=== PATIENT | male | born 1970 | race Caucasian/White ===

== ENCOUNTER 2019-07-11 22:19 | Emergency (ER) | payer SELFPAY ==
--- NOTE | ~2019-07-11 | CT_ITS ---
EXAMINATION: CT abdomen pelvis w con DATE: 07/12/2019 00:02 INDICATION: Upper abdominal pain and vomiting TECHNIQUE: Computed tomography (CT) of the abdomen and pelvis was performed with 100 cc Omnipaque 350 intravenous contrast. The dose-length product was 187.45 mGy-cm. Automated exposure control and iter ative reconstruction technique were employed. COMPARISON: None. FINDINGS: The distal esophagus is distended with fluid. There is mild thickening at the gastroesophag eal junction, not well characterized due to motion. Nonobstructive bowel gas pattern. Moderate diffus e bladder wall thickening. Heart size normal. No significant pleural or pericardial effusion. The jacques er, spleen, pancreas, adrenal glands are unremarkable. There are small hypodense lesions of both kidn eys, most likely benign cysts. No free air or free fluid. Nonobstructive bowel gas pattern. Enlarged prostate gland. There is grade 1 spondylolisthesis at L5-S1 secondary to spondylolysis. IMPRESSION: 1. Distended fluid-filled mid and distal esophagus incompletely visualized. Possible mild thickening at the gastroesophageal junction. Consider distal esophageal obstruction/stricture versus reflux. 2: Circumferential bladder wall thickening, suspicious for cystitis. Correlate clinically. Reviewed, dictated and finalized at location A. IMPRESSION: 1. Distended fluid-filled mid and distal esophagus incompletely visualized. Pos sible mild thickening at the gastroesophageal junction. Consider distal esophag eal obstruction/stricture versus reflux. 2: Circumferential bladder wall thickening, suspicious for cystitis. Correlate clinically.
--- NOTE | ~2019-07-11 | XR_ITS ---
XR abdomen/kub 1V 07/11/2019 22:43 INDICATION: Upper abdominal pain and vomiting TECHNIQUE: KUB COMPARISON: No prior studies for comparison. FINDINGS: Bowel gas pattern is normal. There is no evidence of free air, mass, organomegaly, ascites or obstruction. No abnormal calculi are seen. The bones appear intact. IMPRESSION: 1: No acute abdominal abnormality identified. Reviewed, dictated and finalized at location A.
[2019-07-11 22:25] VITALS: BP 185/116; PULSE 120; RESP 18; TEMP 37; O2SAT 99
--- NOTE | 2019-07-11 22:27 | ED.NAVMDI ---
HPI - Nausea/Vomiting/Diarrhea General Chief complaint: Nausea/Vomiting/Diarrhea Stated complaint: DIFF SWALLOWING Time Seen by Provider: 07/11/19 22:27 Source: patient and RN notes reviewed Mode of arrival: ambulatory Limitations: no limitations History of Present Illness HPI Narrative: A 49 y/o male presents to the ED because he has been unable to swallow any food or liquids since 12 AM this morning. He states that he ate some chicken pasta around 12 AM this morning and shortly after he was unable to swallow anything. He reports that he believes that he has a hiatal hernia which occasionally acts up and prevents him from being able to swallow, but that it normally resolves on its own. He notes that every time he has attempted to drink water he has immediately vomitted it up all day. He denies any SOB, ABD pain, diarrhea, or any other medical complaints at this time. MD elicited complaint: other (Unable to swallow) Onset (ago): hour(s) (22.5) Description of vomiting: watery Associated abdominal pain: No Location of pain: none Relieving factors: none Associated symptoms: denies other symptoms Related Data Home Medications Medication Instructions Recorded Confirmed No Home Medications 03/06/19 03/06/19 Allergies Allergy/AdvReac Type Severity Reaction Status Date / Time aspirin Allergy Severe anaphylactic Verified 02/19/18 02:25 reaction. flurbiprofen Allergy Mild Verified 02/19/18 02:25 NSAIDS (Non-Steroidal Allergy Unknown Verified 02/19/18 02:25 Anti-Inflamma Review of Systems Review of Systems: All systems reviewed & are unremarkable except as noted in HPI and below Constitutional: Constitutional: Denies fatigue and Denies fever(s) Eyes: Eyes: Denies blurry vision ENT: Denies nasal congestion, Denies sinus pressure and Reports other (Unable to swallow) Cardiovascular: Cardiovascular: Denies chest pain, Denies rapid heart rate, Denies leg edema and Denies dyspnea Respiratory: Respiratory: Denies hemoptysis and Denies dyspnea Gastrointestinal: Gastrointestinal: Denies abdominal pain, Denies melena, Denies diarrhea and Reports vomiting Musculoskeletal: Musculoskeletal: Denies numbness Neurologic: Denies Abnormal speech present, Denies focal weakness and Denies numbness Endocrine: Endocrine: Denies fatigue [facility] Past Medical History Medical History (Updated 07/12/19 @ 02:13 by Radhika Sanchez MD) Anxiety Asthma Bronchitis Diverticulitis Finger fracture H/O: HTN (hypertension) Hypothyroid Surgical History Surgical History (Updated 07/11/19 @ 22:39 by Darci Ham) History of colostomy with reversal. Social History Social History (Updated 07/11/19 @ 22:30 by Darci Ham) Smoking packs per day: 1 Smoking cigarettes per day: 20.0 Smoking status: Current every day smoker Tobacco type: cigarettes Alcohol intake: current Alcohol use details: Drinks 6-10 beers a day. Substance use: current Substance use type: marijuana Exam Const: General: alert Nutritional Appearance: thin Orientation/consciousness: patient oriented x3 Eyes: Cornea: corneas normal Pupils: Equal, round and reactive pupils present Chest: Chest palpation & inspection: normal inspection of the chest Resp: Effort & Inspection: normal respiratory effort and not tachypneic Auscultation: clear to auscultation bilaterally Cardio: Rate: tachycardic Rhythm: regular rhythm Heart sounds: no murmurs GI: Inspection: non-distended GI Palp: Yes Soft to palpation, Yes Tenderness to palpation present (GI) (epigastric), No Guarding due to palpation present (GI), No Hernia present and No Palpable mass present Skin: General skin exam: normal color Rashes: no rashes Neuro: General: patient oriented x3, moves all extremities and CN's II-XI intact bilaterally Course Reevaluation(s) Reevaluation #1: Patient is now able to drink water. He feels that obstruction has passed. He denies any discomfort any
[2019-07-11] MEDS: SODIUM CHLORIDE 0.9% IV 1,000 ML 999 ML IV CONT (22:40)
[2019-07-11] MEDS: NITROGLYCERIN OINTMENT 1 INCH DOSE TRANSDERM (22:41)
[2019-07-11] MEDS: GLUCAGON FOR INJ 1 MG VIAL IV PUSH (22:41)
[2019-07-11 22:44] LABS: Basophils Percent Auto 0.5 % (0.2-1.2); Eosinophils Absolute Auto 0.1 K/mm3 (0-0.3); Eosinophils Percent Auto 0.8 % (0-4.4); Hemoglobin 16.5 g/dL (14.0-18.0); Immature Granulocyte Absolute 0.02 K/mm3 (0.00-0.031); Immature Granulocyte Percent A 0.3 % (0-0.5); Lymphocytes Absolute Auto 0.98 K/mm3 (0.9-3.2); Mean Corpuscular HGB Conc 34.4 g/dl (32-36); Mean Corpuscular Hemoglobin 32.3 pg (26-34); Mean Corpuscular Volume 93.9 fl (80-100); Mean Platelet Volume 8.6 fl (7.4-10.4); Monocytes Absolute Auto 0.5 K/mm3 (0.1-0.6); Monocytes Percent Auto 6.1 % (2.6-8.5); Neutrophils Percent Auto 79.3 % (45.5-73.1); Platelet Count Result 265 k/mm3 (150-375); Red Blood Count 5.11 M/mm3 (4.6-6.20); Red Cell Distribution Width 12.2 % (11.5-14.5); White Blood Count 7.6 K/mm3 (4.5-10.0)
[2019-07-11 23:25] VITALS: BP 152/94; PULSE 80; RESP 16; O2SAT 100
[2019-07-11 23:25] LABS: Alanine Aminotransferase 19 U/L (4-50); Albumin Level 4.3 g/dL (3.5-5.1); Alkaline Phosphatase 60 U/L (38-126); Aspartate Amino Transferase 34 U/L (17-59); Bilirubin,Total 0.5 mg/dL (0.2-1.3); Blood Urea Nitrogen 13 mg/dL (9-20); Calcium 8.8 mg/dL (8.4-10.2); Carbon Dioxide 24 mmol/L (22-30); Chloride 106 mmol/L (98-107); Estimated CRCL calculation 89 ml/min; Estimated Glomerular Filt Rate > 60; Glucose 74 mg/dL (75-110); Sodium 141 mmol/L (137-145)
[2019-07-11] MEDS: PANTOPRAZOLE SODIUM IV 40 MG VIAL IV PUSH (23:41)
[2019-07-11] MEDS: LACTATED RINGERS 1,000 ML 999 ML IV CONT (23:42)
[2019-07-12 01:51] VITALS: BP 146/83; PULSE 97; RESP 16; O2SAT 100
--- NOTE | 2019-07-12 01:51 | PC.NURSE ---
PT ABLE TO KEEP WATER DOWN AT THIS TIME. NOTIFIED.
[2019-07-12 02:28] VITALS: BP 146/96; PULSE 80; RESP 16; TEMP 36.2; O2SAT 100
== END 2019-07-12 02:29 | disposition home or self-care (01) ==
PROVIDERS: Emergency Provider General Practice; PCP Emergency Medicine
DX: T18.128A Food in esophagus causing other injury, initial encounter (principal); I10 Essential (primary) hypertension; J45.909 Unspecified asthma, uncomplicated; E03.9 Hypothyroidism, unspecified; F17.210 Nicotine dependence, cigarettes, uncomplicated
CPT/HCPCS: 36415; 74018; 74177; 80053; 85025; 96361; 96374; 96375; 99284; A9270; C9113; J1610; J7030; J7120; Q9967

== ENCOUNTER 2020-07-21 15:44 | Emergency (ER) | payer OTHER, SELFPAY ==
--- NOTE | ~2020-07-21 | XR_ITS ---
EXAMINATION: XR knee RT 3V DATE: 07/21/2020 16:21 INDICATION: Right knee pain. TECHNIQUE: 3 views of right knee were obtained. COMPARISON: None. FINDINGS: Bone alignment is normal. No fracture. Joint spaces are well maintained. There is no knee j oint effusion. IMPRESSION: 1. Normal right knee. Reviewed, dictated and finalized at location A. IMPRESSION: 1. Normal right knee.
[2020-07-21 16:01] VITALS: BP 155/99; PULSE 105; RESP 18; TEMP 36.8; O2SAT 100
--- NOTE | 2020-07-21 16:16 | ED.GENADULT ---
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 flurbiprofen Allergy Mild Verified 02/19/18 02:25 NSAIDS (Non-Steroidal Allergy Unknown Verified 02/19/18 02:25 Anti-Inflamma Review of Systems Review of Systems: All systems reviewed & are unremarkable except as noted in HPI and below PMFSH Past Medical History Medical History Anxiety Asthma Bronchitis Diverticulitis Finger fracture H/O: HTN (hypertension) Hypothyroid Surgical History Surgical History History of colostomy with reversal. Social History Social History Smoking packs per day: 1 Smoking cigarettes per day: 20.0 Smoking status: Current every day smoker Tobacco type: cigarettes Alcohol intake: current Substance use: current Substance use type: marijuana Gender identity (if verbalized by the patient): Male Exam Const: General: cooperative, healthy appearing and comfortable Nutritional Appearance: average body habitus and well nourished Orientation/consciousness: oriented to person and oriented to place Limitations: no limitations HENMT: Head: normal to inspection, normocephalic and atraumatic Eyes: General: appearance normal, both eyes and all related structures Skin: General skin exam: normal color and no rashes or lesions noted Neuro: General: oriented to person, oriented to place, oriented to time, patient oriented x3 and CN's II-XI intact bilaterally Speech: normal speech Gait exam (Neuro): Normal gait present Motor exam (neuro): 5/5 motor strength present throughout Sensory Exam: normal sensation Extrem: General: normal to inspection, full ROM and capillary refill normal Right lower extremity: normal to inspection (Side for anterior and posterior tenderness no deformities) Course Course Emergency Course: Patient in the room no distress aware of case findings treatment plan and diagnosis agreeing to follow-up as instructed Vital Signs Vital signs: Vital Signs Temperature 98.3 F 07/21/20 16:01 Pulse Rate 105 H 07/21/20 16:01 Respiratory Rate 18 07/21/20 16:01 Blood Pressure 155/99 H 07/21/20 16:01 Pulse Oximetry 100 07/21/20 16:01 Temperature 98.3 F 07/21/20 16:01 Pulse Rate 105 H 07/21/20 16:01 Respiratory Rate 18 07/21/20 16:01 Blood Pressure 155/99 H 07/21/20 16:01 Pulse Oximetry 100 07/21/20 16:01 Medical Decision Making MDM Narrative Medical decision making narrative: Patient with normal range of motion and strength no abnormalities on x-ray no concerning findings on exam will be placed in Max wrap and follow with primary care Vital Signs Vital Signs: Vital Signs Temperature 98.3 F 07/21/20 16:01 Pulse Rate 105 H 07/21/20 16:01 Respiratory Rate 18 07/21/20 16:01 Blood Pressure 155/99 H 07/21/20 16:01 Pulse Oximetry 100 07/21/20 16:01 Temperature 98.3 F 07/21/20 16:01 Pulse Rate 105 H 07/21/20 16:01 Respiratory Rate 18 07/21/20 16:01 Blood Pressure 155/99
--- NOTE | 2020-07-21 17:32 | ED.GENADULT ---
HPI - General Adult General Chief complaint: Extremity Injury, Lower Stated complaint: Right Knee injury Time Seen by Provider: 07/21/20 15:58 Source: patient Mode of arrival: ambulatory Limitations: no limitations History of Present Illness HPI narrative: Patient is a 50-year-old male who presents with right anterior knee pain noting aching pain that began last night while at work notes that he may have either stepped in a hole or hyperextended the knee denies other complaints presents in no distress Related Data Home Medications Medication Instructions Recorded Confirmed No Home Medications 03/06/19 03/06/19 Allergies Allergy/AdvReac Type Severity Reaction Status Date / Time aspirin Allergy Severe anaphylactic Verified 02/19/18 02:25 reaction. flurbiprofen Allergy Mild Verified 02/19/18 02:25 NSAIDS (Non-Steroidal Allergy Unknown Verified 02/19/18 02:25 Anti-Inflamma Review of Systems Review of Systems: All systems reviewed & are unremarkable except as noted in HPI and below PMFSH Past Medical History Medical History Anxiety Asthma Bronchitis Diverticulitis Finger fracture H/O: HTN (hypertension) Hypothyroid Surgical History Surgical History History of colostomy with reversal. Social History Social History Smoking packs per day: 1 Smoking cigarettes per day: 20.0 Smoking status: Current every day smoker Tobacco type: cigarettes Alcohol intake: current Substance use: current Substance use type: marijuana Gender identity (if verbalized by the patient): Male Exam Narrative: Exam Narrative: GENERAL: Well-appearing, well-nourished, and in no acute distress. HEAD: Normocephalic, atraumatic. EYES: PERRLA and EOMI. ENT: Nares clear, no rhinorrhea or epistaxis. Mucous membranes moist. EXTREMITIES: Normal range of motion. No edema. Tenderness of the anterior and posterior aspect of the right knee with no deformity noted SKIN: Warm, dry, no rash. NEURO: No focal deficits. Alert and oriented x3. Neurovascularly intact. Capillary refill less than 2 seconds PSYCH: Normal mood and affect. Course Course Emergency Course: Patient in the room no distress will be referred to orthopedics for further evaluation patient agrees with this plan Vital Signs Vital signs: Vital Signs Temperature 98.3 F 07/21/20 16:01 Pulse Rate 105 H 07/21/20 16:01 Respiratory Rate 18 07/21/20 16:01 Blood Pressure 155/99 H 07/21/20 16:01 Pulse Oximetry 100 07/21/20 16:01 Temperature 98.3 F 07/21/20 16:01 Pulse Rate 105 H 07/21/20 16:01 Respiratory Rate 18 07/21/20 16:01 Blood Pressure 155/99 H 07/21/20 16:01 Pulse Oximetry 100 07/21/20 16:01 Medical Decision Making MDM Narrative Medical decision making narrative: Patients injury or pain is consistent with musculoskeletal etiology. No signs of neurological or vascular compromise on exam. Compartments and tisues are soft without signs of compartment syndrome. Pain is felt appropriate for further evaluation on an outpatient basis. Vital Signs Vital Signs: Vital Signs Temperature 98.3 F 07/21/20 16:01 Pulse Rate 105 H 07/21/20 16:01 Respiratory Rate 18 07/21/20 16:01 Blood Pressure 155/99 H 07/21/20 16:01 Pulse Oximetry 100 07/21/20 16:01 Temperature 98.3 F 07/21/20 16:01 Pulse Rate 105 H 07/21/20 16:01 Respiratory Rate 18 07/21/20 16:01 Blood Pressure 155/99 H 07/21/20 16:01 Pulse Oximetry 100 07/21/20 16:01 Imaging Data Radiologist's impression: ITS Impressions Knee X-Ray 07/21/20 16:25 IMPRESSION: 1. Normal right knee. Discharge Plan Discharge Clinical Impression: Knee pain, right Patient Disposition: Home, Self-Care Condition: Stable Instructions: Antibiotic Form, Arthr
== END 2020-07-21 17:47 | disposition home or self-care (01) ==
PROVIDERS: Emergency Provider Emergency Medicine; PCP Emergency Medicine
DX: M25.561 Pain in right knee (principal); F17.210 Nicotine dependence, cigarettes, uncomplicated; J45.909 Unspecified asthma, uncomplicated; I10 Essential (primary) hypertension
CPT/HCPCS: 73562; 99283

== ENCOUNTER 2021-06-07 16:48 | Emergency (ER) | payer BC, SELFPAY ==
--- NOTE | ~2021-06-07 | XR_ITS ---
EXAMINATION: XR ribs RT 2V w CXR 2V DATE: 06/07/2021 17:13 INDICATION: Right rib pain post fall TECHNIQUE: PA and lateral views of the chest and 3 views of the right ribs were obtained. COMPARISON: Chest radiograph dated 03/27/2016 FINDINGS: Pectus excavatum. Nondisplaced fractures at the anterolateral right eighth and ninth ribs. Lungs rochelle in clear with no focal airspace opacities, pulmonary edema, pleural effusion or pneumothorax. Cardiom ediastinal silhouette is normal. IMPRESSION: 1. Nondisplaced anterolateral right eighth and ninth rib fractures. 2. No acute cardiopulmonary disease. Reviewed, dictated and finalized at location A. [employer]
[2021-06-07 17:02] VITALS: BP 151/105; PULSE 93; RESP 18; TEMP 36.8; O2SAT 98
--- NOTE | 2021-06-07 17:24 | ED.FALL ---
HPI - Fall General Chief Complaint: Fall Stated Complaint: fall/rib pain Time Seen by Provider: 06/07/21 17:04 Source: patient and RN notes reviewed Mode of arrival: ambulatory Limitations: no limitations History of Present Illness HPI Narrative: 51-year-old male presented to the emergency department for evaluation of right lateral rib pain. Patient reports that approximately 2:00 this morning he had a ground-level fall caused by tripping over his cat. Patient states that he struck his right lower ribs on the edge of the kitchen table. Patient states he has had increased pain with cough and movement since that time. Patient denies striking head denies loss consciousness. Patient does have history of COPD. Patient denies any change in shortness of breath but does report increased pain with coughing. Patient reports he has an allergy to acetaminophen. Related Data Allergies Allergy/AdvReac Type Severity Reaction Status Date / Time aspirin Allergy Severe anaphylactic Verified 06/07/21 17:00 reaction. flurbiprofen Allergy Mild Unknown Verified 06/07/21 17:00 NSAIDS (Non-Steroidal Allergy Unknown Difficulty Verified 06/07/21 17:00 Anti-Inflamma Breathing Review of Systems Review of Systems: CONSTITUTIONAL: Denies fever, chills, or sweats. EYES: Denies visual changes, redness, or discharge. ENT: Denies rhinorrhea, congestion, sore throat, or otalgia. CARDIOVASCULAR: Denies chest pain, palpitations, or edema. RESPIRATORY: Cough at baseline and worsened rib pain with coughing GASTROINTESTINAL: Denies abdominal pain, nausea, vomiting, or diarrhea. GENITOURINARY: Denies dysuria or hematuria. SKIN: Denies rash or itching. MUSCULOSKELETAL: Denies back pain, joint pain, or myalgia. NEUROLOGIC: Denies headache, numbness, or weakness. PSYCHIATRIC: Denies anxiety or depression. [facility] Past Medical History Medical History Anxiety Asthma Bronchitis Diverticulitis Finger fracture H/O: HTN (hypertension) Hypothyroid Surgical History Surgical History History of colostomy with reversal. Social History Social History Smoking packs per day: 1 Smoking cigarettes per day: 20.0 Smoking status: Current every day smoker Tobacco type: cigarettes Alcohol intake: current Alcohol use details: Drinks 6-10 beers a day. Substance use: current Substance use type: marijuana Gender identity (if verbalized by the patient): Male Exam Narrative: APPEARANCE: Well appearing, no pain, no distress, well-nourished. HEAD: normocephalic, atraumatic. EYES: PERRLA/EOMI, conjunctivae clear. NOSE: Normal no drainage EARS:TMS clear with good light reflex. THROAT: Pharynx clear, no exudate. NECK: Supple. No adenopathy, no masses. RESPIRATORY: Airway patent, respirations nonlabored. Clear to auscultation bilaterally, no rales, rhonchi, wheezing. CARDIOVASCULAR: Regular rate and rhythm without murmurs rubs or gallops. Right lower rib tenderness to palpation ABDOMINAL: Soft, nontender, nondistended, normal bowel sounds. No abdominal tenderness to palpation. MUSCULOSKELETAL: Moves all extremities. Strength/ROM intact, No edema, No calf tenderness. SKIN: Warm, dry. Normal Color PSYCHIATRIC: Normal affect/mood. Course Course Emergency Course: Patient was updated on the results of his imaging. Patient was educated on the use of the incentive spirometer. Patient was also informed on reasons to return to the emerge department and on the importance having close follow-up with his primary care physician. All questions concerns were addressed. Patient was in no distress at time of discharge from emergency room. Vital Signs Vital signs: Vital Signs Temperature 98.2 F 06/07/21 17:02 Pulse Rate 93 06/07/21 17:02 Respiratory Rate 18 06/07/21 17:02 Blood Pressure 1
[2021-06-07] MEDS: HYDROcodone/acetaminophen (*CRX) 5-325 MG TABLET 1 TAB PO (17:37)
[2021-06-07] MEDS: CYCLOBENZAPRINE HCL 10 MG TABLET PO (17:40)
== END 2021-06-07 18:19 | disposition home or self-care (01) ==
PROVIDERS: Emergency Provider Emergency Medicine
DX: S22.39XA Fracture of one rib, unspecified side, initial encounter for closed fracture (principal); F17.210 Nicotine dependence, cigarettes, uncomplicated; F41.9 Anxiety disorder, unspecified; J45.909 Unspecified asthma, uncomplicated; I10 Essential (primary) hypertension; E03.9 Hypothyroidism, unspecified; W01.0XXA Fall on same level from slipping, tripping and stumbling without subsequent striking against object, initial encounter
CPT/HCPCS: 71046; 71100; 99283; A9270

== ENCOUNTER → 2021-06-13 15:18 | Outpatient (CLI) | payer BC, SELFPAY ==
--- NOTE | ~2021-06-13 | XR_ITS ---
EXAMINATION: XR ribs RT 2V w CXR 2V 06/13/2021 15:49 INDICATION: Productive cough. Rib fractures. PROCEDURE: 5 views right RIBS including PA and lateral views of the chest COMPARISON: 06/07/2021 FINDINGS: The lungs are clear. There are stable nondisplaced right eighth and ninth rib fractures. Th e cardiomediastinal silhouette is within normal limits. There are no pleural effusions. There is no pneumothorax suspected. The lungs are hyperinflated which is consistent with, but not diagnostic of chronic obstructive pulmonary disease. IMPRESSION: 1: Stable nondisplaced right eighth and ninth rib fractures.. 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
== END ==
PROVIDERS: PCP Emergency Medicine; Visit Provider Emergency Medicine
DX: S22.41XA Multiple fractures of ribs, right side, initial encounter for closed fracture (principal); X58.XXXA Exposure to other specified factors, initial encounter
CPT/HCPCS: 71046; 71100

== ENCOUNTER 2021-07-12 15:42 | Emergency (ER) | payer OTHER, BC, SELFPAY ==
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
[2021-07-12 16:14] VITALS: BP 153/94; PULSE 87; RESP 18; TEMP 36.9; O2SAT 100
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
== END 2021-07-12 19:35 | disposition home or self-care (01) ==
PROVIDERS: Emergency Provider Emergency Medicine; PCP Emergency Medicine
DX: S16.1XXA Strain of muscle, fascia and tendon at neck level, initial encounter (principal); M25.532 Pain in left wrist; V89.2XXA Person injured in unspecified motor-vehicle accident, traffic, initial encounter; F41.9 Anxiety disorder, unspecified; J45.909 Unspecified asthma, uncomplicated; I10 Essential (primary) hypertension
CPT/HCPCS: 72040; 73110; 99284

== ENCOUNTER 2023-11-10 13:58 | Emergency (ER) | payer OTHER, SELFPAY ==
--- NOTE | ~2023-11-10 | CT_ITS ---
EXAMINATION: CT brain wo con DATE: 11/10/2023 16:16 INDICATION: Dizziness. Hypertension. TECHNIQUE: Computed tomography (CT) of the head was performed without intravenous contrast. Sagittal and coronal reconstructions were performed. The mA was adjusted according to patient size. Iterative reconstruction technique was employed. The dose-length product was 605.33 mGy-cm. COMPARISON: None FINDINGS: No acute intracranial hemorrhage, acute infarction or abnormal extra axial fluid collection. There is mild scattered white matter hypoattenuation consistent with chronic small vessel ischemic disease. Ventricles are normal and symmetric. No mass/mass effect. There is prominent mucosal thickening in th e bilateral ethmoid, maxillary and left sphenoid sinuses with mild mucosal thickening the right sphen oid and bilateral frontal sinuses. The orbits and mastoid air cells are normal. IMPRESSION: 1. Mild scattered white matter hypoattenuation consistent with chronic small vessel ischemic disease. No other acute intrarenal process. 2. Prominent mucosal thickening in the paranasal sinuses. Reviewed, dictated and finalized at location A. IMPRESSION: 1. Mild scattered white matter hypoattenuation consistent with chronic small ve ssel ischemic disease. No other acute intrarenal process. 2. Prominent mucosal thickening in the paranasal sinuses.
--- NOTE | ~2023-11-10 | XR_ITS ---
EXAMINATION: XR chest 2V DATE: 11/10/2023 15:41 INDICATION: Syncope TECHNIQUE: frontal and lateral views of the chest were obtained. COMPARISON: Chest radiograph dated 06/13/2021 FINDINGS: Hyperexpansion of lungs with flattening of the diaphragm and increased retrosternal clear space sugge stive but not diagnostic of COPD. There are few scattered small calcified pulmonary nodules consisten t with old granulomatous disease. No other airspace opacities, pulmonary edema, pleural effusion or p neumothorax. The cardiomediastinal silhouette is normal. Mild thoracic spondylosis. IMPRESSION: 1. Appearance suggestive but not diagnostic of COPD. No acute cardiopulmonary disease. Reviewed, dictated and finalized at location A. IMPRESSION: 1. Appearance suggestive but not diagnostic of COPD. No acute cardiopulmonary d isease.
[2023-11-10 14:17] VITALS: BP 155/110; PULSE 86; RESP 16; TEMP 36.4; O2SAT 100
--- NOTE | 2023-11-10 14:57 | ECG_ITS ---
Test Date: 2023-11-10 15:22:09 Measurements Intervals [place] Rate: 62 P: 67 MN: 144 QRS: 71 QRSD: 86 T: 63 QT: 399 QTc: 408 Interpretive Statements SINUS RHYTHM WITH SINUS ARRHYTHMIA CONSIDER ANTERIOR INFARCT, AGE INDETERMINATE BASELINE ARTIFACT- I, II, III, AVR, AVL,A VF, V1-V6 ABNORMAL ECG No previous ECG available for comparison Electronically Signed On 11-10-2023 20:21:52 CDT by Jerzy Foote D.O.
[2023-11-10 15:14] VITALS: PULSE 81; RESP 16; O2SAT 98
[2023-11-10 15:16] VITALS: BP 168/118; BP 182/89; BP 184/116; PULSE 60; PULSE 70; PULSE 84
[2023-11-10 15:22] LABS: Basophils Percent Auto 1.1 % (0.2-1.2); Eosinophils Absolute Auto 0.3 K/mm3 (0-0.3); Eosinophils Percent Auto 7.8 % (0-4.4); Hematocrit 43.3 % (42.0-52.0); Hemoglobin 15.2 g/dL (14.0-18.0); Immature Granulocyte Absolute 0.01 K/mm3 (0.00-0.031); Immature Granulocyte Percent A 0.3 % (0-0.5); Lymphocytes Percent Auto 21.6 % (18.3-44.2); Mean Corpuscular HGB Conc 35.1 g/dl (32-36); Mean Corpuscular Hemoglobin 33.6 pg (26-34); Mean Corpuscular Volume 95.6 fl (80-100); Mean Platelet Volume 8.2 fl (7.4-10.4); Monocytes Absolute Auto 0.4 K/mm3 (0.1-0.6); Monocytes Percent Auto 9.7 % (2.6-8.5); Neutrophils Absolute Auto 2.2 K/mm3 (1.3-6.7); Neutrophils Percent Auto 59.5 % (45.5-73.1); Platelet Count Result 260 k/mm3 (150-375); Red Blood Count 4.53 M/mm3 (4.6-6.20); Red Cell Distribution Width 12.4 % (11.5-14.5); White Blood Count 3.7 K/mm3 (4.5-10.0)
[2023-11-10] MEDS: SODIUM CHLORIDE 0.9% IV 1,000 ML 999 ML IV CONT (15:24)
[2023-11-10 15:31] LABS: Creatine Kinase 86 U/L (55-170)
[2023-11-10 15:43] LABS: Alanine Aminotransferase 18 U/L (6-50); Albumin Level 4.6 g/dL (3.5-5.1); Alkaline Phosphatase 55 U/L (38-126); Anion Gap 8 mmol/L (4-12); Aspartate Amino Transferase 40 U/L (17-59); Bilirubin,Total 0.5 mg/dL (0.2-1.3); Blood Urea Nitrogen 8 mg/dL (9-20); Calcium 9.4 mg/dL (8.4-10.2); Carbon Dioxide 31 mmol/L (22-30); Chloride 95 mmol/L (98-107); Estimated CRCL calculation 83 ml/min; Estimated Glomerular Filt Rate > 60; Glucose 93 mg/dL (65-110); Potassium 5.5 mmol/L (3.4-5.0); Sodium 134 mmol/L (137-145)
[2023-11-10 15:55] LABS: Troponin I < 0.012 ng/mL (0.000-0.034)
--- NOTE | 2023-11-10 16:24 | ED.GENADULT ---
HPI - General Adult General Chief complaint: Unspecified Stated complaint: feeling weird Time Seen by Provider: 11/10/23 14:56 Source: patient Mode of arrival: ambulatory Limitations: no limitations History of Present Illness HPI narrative: This is a 53 year old male that presents to the ER for a syncopal episode today. Reports he was sitting in his brothers car. He started to feel very lightheaded, like his head was swimming. He then passed out. Reports brief loss of consciousness. His brother reported he was twitching. Patient reports a similar episode several years ago. Reports known history of hypertension, he has not taken his antihypertensive in years. Denies chest pain, shortness of breath, palpitations. Related Data Allergies Allergy/AdvReac Type Severity Reaction Status Date / Time aspirin Allergy Severe anaphylactic Verified 06/07/21 17:00 reaction. flurbiprofen Allergy Mild Unknown Verified 06/07/21 17:00 NSAIDS (Non-Steroidal Allergy Unknown Difficulty Verified 06/07/21 17:00 Anti-Inflamma Breathing Review of Systems Review of Systems: CONSTITUTIONAL: Denies fever CARDIOVASCULAR: Denies chest pain RESPIRATORY: Denies dyspnea. GASTROINTESTINAL: Denies vomiting NEUROLOGIC: Denies numbness, or weakness. All systems reviewed & are unremarkable except as noted in HPI and below PMFSH Past Medical History Medical History Anxiety Asthma Bronchitis Diverticulitis Finger fracture H/O: HTN (hypertension) Hypothyroid Surgical History Surgical History History of colostomy with reversal. Social History Social History Smoking packs per day: 1 Smoking cigarettes per day: 20.0 Smoking status: Current every day smoker Tobacco type: cigarettes Alcohol intake: current Alcohol use details: Drinks 6-10 beers a day. Substance use: current Substance use type: marijuana Gender identity (if verbalized by the patient): Male Exam Narrative: GENERAL: Well-appearing, well-nourished, and in no acute distress. HEAD: Normocephalic, atraumatic. EYES: PERRLA and EOMI. ENT: Nares clear, no rhinorrhea or epistaxis. Mucous membranes moist. Oropharynx without tonsillar hypertrophy exudate or other lesions. Bilateral TMs pearly shearer non-bulging NECK: Supple. No adenopathy or masses. No JVD CHEST: Clear to auscultation. No respiratory distress. No wheezes rales or rhonchi HEART: Regular rate and rhythm. No murmur heard. Normal peripheral pulses. EXTREMITIES: Normal range of motion. No edema. SKIN: Warm, dry, no rash. NEURO: No focal deficits. Alert and oriented x3. CN II-XII grossly intact PSYCH: Normal mood and affect Course Course Emergency Course: Patient updated on his workup and agrees with plan of care Vital Signs Vital signs: Vital Signs Temperature 97.6 F 11/10/23 14:17 Pulse Rate 86 11/10/23 14:17 Respiratory Rate 16 11/10/23 14:17 Blood Pressure 155/110 H 11/10/23 14:17 Pulse Oximetry 100 11/10/23 14:17 Oxygen Delivery Room Air 11/10/23 14:17 Temperature 97.6 F 11/10/23 14:17 Pulse Rate 79 11/10/23 18:23 Respiratory Rate 20 11/10/23 18:23 Blood Pressure 181/110 H 11/10/23 18:23 Pulse Oximetry 100 11/10/23 18:23 Oxygen Delivery Room Air 11/10/23 14:17 Medical Decision Making [facility] Narrative Medical decision making narrative: Patient presents to the emergency department after a syncopal episode today. He is neurologically intact. Hypertensive. Does report known history of hypertension. Reports he has not taken his medication in years. Other vitals are normal. CBC with mild leukopenia. Metabolic panel with some evidence of dehydration as well as mild hyperkalemia. Patient was hydrated with a L of IV fluids. Repeat metabolic panel improved with normal potassium.
[2023-11-10 16:29] VITALS: BP 168/98; PULSE 62; RESP 19; O2SAT 98
[2023-11-10 16:31] LABS: Influenza A QL RT-PCR Negative (Negative); Influenza B QL RT-PCR Negative (Negative); RSV RNA, RT-PCR Negative (Negative); SARS-CoV-2 RNA PCR Negative (Negative)
[2023-11-10 17:34] VITALS: BP 192/101; PULSE 67; RESP 19; O2SAT 98
[2023-11-10 17:51] LABS: Anion Gap 7 mmol/L (4-12); Blood Urea Nitrogen 8 mg/dL (9-20); Carbon Dioxide 28 mmol/L (22-30); Chloride 99 mmol/L (98-107); Estimated CRCL calculation 94 ml/min; Estimated Glomerular Filt Rate > 60; Glucose 95 mg/dL (65-110); Potassium 4.4 mmol/L (3.4-5.0); Sodium 134 mmol/L (137-145)
[2023-11-10 18:23] VITALS: BP 181/110; PULSE 79; RESP 20; O2SAT 100
== END 2023-11-10 18:27 | disposition home or self-care (01) ==
PROVIDERS: Emergency Provider Physician Assistant; PCP Emergency Medicine
DX: R55 Syncope and collapse (principal); E87.5 Hyperkalemia; I10 Essential (primary) hypertension; E03.9 Hypothyroidism, unspecified; F17.210 Nicotine dependence, cigarettes, uncomplicated; Z20.822 Contact with and (suspected) exposure to COVID-19
CPT/HCPCS: 36415; 70450; 71046; 80048; 80053; 82550; 84484; 85025; 87637; 93005; 96360; 99284; J7030

== ENCOUNTER 2024-05-26 11:58 | Emergency (ER) | payer OTHER, SELFPAY ==
--- NOTE | ~2024-05-26 | XR_ITS ---
EXAMINATION: XR chest 2V DATE: 05/26/2024 14:13 INDICATION: Shortness of breath TECHNIQUE: PA and lateral views of the chest were obtained. COMPARISON: Chest radiograph dated 11/10/2023 FINDINGS: Hyperexpansion of lungs with increased retrosternal clear space and flattening of the diaphragm sugge stive of COPD. Small calcified nodule at the lateral left midlung zone consistent with old granulomat ous disease. The cardiomediastinal silhouette is normal. Mild thoracic spondylosis. Couple old healed right rib fractures. IMPRESSION: 1. Hyperexpansion of lungs suggestive but not diagnostic of COPD. Reviewed, dictated and finalized at location A. 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
[2024-05-26 12:50] VITALS: BP 136/95; PULSE 100; RESP 24; TEMP 37.2; O2SAT 96
--- NOTE | 2024-05-26 12:54 | ECG_ITS ---
Test Date: 2024-05-26 13:09:27 Measurements Intervals [place] Rate: 94 P: 76 [place]: 142 QRS: 78 QRSD: 87 T: 63 QT: 325 QTc: 406 Interpretive Statements SINUS RHYTHM POSSIBLE LEFT ATRIAL ENLARGEMENT CANNOT R/O SEPTAL INFARCT, AGE INDETERMINATE BASELINE ARTIFACT- I, III, AVR, AVL, V1 ABNORMAL ECG Compared to ECG 11/10/2023 15:22:09 NO SIGNIFICANT CHANGE Electronically Signed On 05-26-2024 13:27:22 PATHOLOGY LABORATORY AIDE by Jerzy Foote D.O.
--- NOTE | 2024-05-26 12:55 | ED.URI ---
HPI - URI/Sore Throat General Chief Complaint: Upper Respiratory Infection <Mary Capone APRN - Last Filed: 05/26/24 17:25> Stated Complaint: Shortness of breath, Cough <Mary Capone APRN - Last Filed: 05/26/24 17:25> Time Seen by Provider: 05/26/24 12:50 <Mary Capone APRN - Last Filed: 05/26/24 17:25> Focused HPI: Patient is a 54-year-old male who presents to the ER with complaints of shortness of breath, cough, and wheezing. He reports he has a history of COPD but his symptoms have gotten worst over the last 24 hours. Patient reports his coughing so bad that he is unable to sleep. He denies any chest pain, recent fevers, abdominal pain, or back pain. Patient endorses history of hypertension and bronchitis. GENERAL: Well-appearing, poorly-nourished, and in mild respiratory distress. HEAD: Normocephalic, atraumatic. CHEST: Wheezing to auscultation. ?Mild respiratory distress. HEART: Tachycardia, regular rhythm. NEURO: ?Alert and oriented x3. Patient screened in triage and initial orders placed.? ?Additional care and disposition to be based upon?diagnostic testing and treatment. 1720-Upon reassessment, patient reports he ?does not feel better and I'm still short of breath after steroid administration. He has not received his DuoNeb yet so healthcare staff will initiate that at this time. Patient given results of positive influenza a. Will do a CT scan of patient's chest to ensure there are no other respiratory issues causing his symptoms. <Mary Capone APRN - Last Filed: 05/26/24 17:25> History of Present Illness HPI Narrative: Agree with the above with the following additions/corrections: Patient is assessed and is declining CT scan. He does wants to go home and states that his symptoms are improving after the breathing treatment. He does smoke less than 1 pack per day though he states he has not had a cigarette for several days and does not seem to be craving them. We discussed that now may be an ideal time to stop. States the diagnosis of COPD is not official. Does have an albuterol inhaler. Denies any sore throat. He has been using generic brand DayQuil. He states that his lungs felt like they were on fire and he has been having a cough. He does also have myalgias. <Regla Mcghee MD - Last Filed: 05/27/24 17:53> Related Data Allergies/Adverse Reactions: Allergies Allergy/AdvReac Type Severity Reaction Status Date / Time aspirin Allergy Severe anaphylactic Verified 05/26/24 12:54 reaction. flurbiprofen Allergy Mild Unknown Verified 05/26/24 12:54 NSAIDS (Non-Steroidal Allergy Unknown Difficulty Verified 05/26/24 12:54 Anti-Inflamma Breathing <Mary Capone APRN - Last Filed: 05/26/24 17:25> REPLACED BY [facility] Past Medical History Medical History: Medical History Anxiety Asthma Bronchitis Diverticulitis Finger fracture H/O: HTN (hypertension) Hypothyroid <Mary Capone APRN - Last Filed: 05/26/24 17:25> Surgical History Surgical History: Surgical History History of colostomy with reversal. <Mary Capone APRN - Last Filed: 05/26/24 17:25> Social History Social History: Social History (Updated 05/27/24 @ 17:48 by Regla Mcghee MD) Smoking packs per day: 0.75 Smoking cigarettes per day: 15.0 Smoking status: Current every day smoker Tobacco type: cigarettes Smoking end date: 05/23/24 Alcohol intake: current Alcohol use details: Drinks 6-10 beers a day. Substance use: current Substance use type: marijuana Occupation/Education: occupation Additional occupation/education comments: Works at [employer] Gender identity (if verbalized by the patient): Male <Mary Capone APRN - Last Filed: 05/26/24 17:25> Exam Narrative: GENERAL: Lean. In no acute distress. HEAD: Normocephalic, atraumatic. EYES: Non injected, non icteric ENT: Nares clear, no rhinorrhea or epistaxis. NECK: Supple. CHEST: Speaking in full sentences. No respiratory distress. Lungs clear to auscultation bilaterally without appreciable wheezes. Good air movement throughout. No crackles. HEART: Regular rate and rhythm. . ABDOMEN: Soft, nondistended. EXTREMITIES: Normal range of motion. No lower extremity edema. SKIN: Warm, dry, no rash. NEURO: No focal deficits. Alert and oriented x3. PSYCH: Normal mood and affect. <Regla Mcghee MD - Last Filed: 05/27/24 17:53> Course Vital Signs Vital signs: Vital Signs Temperature 98.9 F 05/26/24 12:50 Pulse Rate 100 05/26/24 12:50 Respiratory Rate 24 H 05/26/24 12:50 Blood Pressure 136/95 H 05/26/24 12:50 Pulse Oximetry 96 05/26/24 12:50 Oxygen Delivery Room Air 05/26/24 12:50 Temperature 98.1 F 05/26/24 20:40 Pulse Rate 83 05/26/24 20:40 Respiratory Rate 17 05/26/24 20:40 Blood Pressure 133/76 05/26/24 20:40 Pulse Oximetry 98 05/26/24 20:40 Oxygen Delivery Room Air 05/26/24 12:50 <Mary Capone, CHRISTY - Last Filed: 05/26/24 17:25> Vital Signs Temperature 98.9 F 05/26/24 12:50 Pulse Rate 100 05/26/24 12:50 Respiratory Rate 24 H 05/26/24 12:50 Blood Pressure 136/95 H 05/26/24 12:50 Pulse Oximetry 96 05/26/24 12:50 Oxygen Delivery Room Air 05/26/24 12:50 Temperature 98.1 F 05/26/24 20:40 Pulse Rate 83 05/26/24 20:40 Respiratory Rate 17 05/26/24 20:40 Blood Pressure 133/76 05/26/24 20:40 Pulse Oximetry 98 05/26/24 20:40 Oxygen Delivery Room Air 05/26/24 12:50 <Regla Mcghee MD - Last Filed: 05/27/24 17:53> MDM - URI/Sore Throat MDM Narrative Medical decision making narrative: Patient presents with cough, myalgias, feeling like his lungs were on fire. In the emergency department he is afebrile vital signs notable for hypertension initial tachypnea which resolves on reassessment. Leukopenia which has previously been appreciated. Hyponatremia, slightly worsened from previous though also previously hyponatremic. He test positive for influenza A. Patient is assessed and states he would like to go. Smoking Cessation: Currently smokes: 3/4 PPD. Reasons to quit smoking: Health. Has not smoked since this weekend and states he doesn't even crave a cigarette. The patient was counseled that smoking tobacco has been short long-term negative health effects and the patient should attempt to stop smoking as 1 most important things they can do to improve her health now and in the future. Counseling <3 minutes. He is feeling better after the breathing treatment he receives. He does not want to proceed with CT imaging. He has medications at home and does not want any doses of anything before he leaves. Provided prescriptions for acetaminophen and Tessalon Perles. Deferred prescribing NSAIDs given that he lists this as an allergy. <Regla Mcghee MD - Last Filed: 05/27/24 17:53> Differential Diagnosis Differential diagnosis: Likely upper respiratory infection, viral infection, bronchitis and influenza <Regla Mcghee MD - Last Filed: 05/27/24 17:53> Lab Data Attestation: I reviewed the patient's lab results. <Regla Mcghee MD - Last Filed: 05/27/24 17:53> Result diagrams: 05/26/24 13:02 05/26/24 13:02 <Mary Capone APRN - Last Filed: 05/26/24 17:25> Labs: Lab Results 05/26/24 Range/Units 13:02 WBC 3.1 L (4.5-10.0) K/mm3 RBC 4.57 L (4.6-6.20) M/mm3 Hgb 15.1 (14.0-18.0) g/dL Hct 43.5 (42.0-52.0) % MCV 95.2 (80-100) fl MCH 33.0 (26-34) pg MCHC 34.7 (32-36) g/dl RDW 12.2 (11.5-14.5) % Plt Count 212 (150-375) k/mm3 MPV 8.4 (7.4-10.4) fl Immature Gran % (Auto) Not Reportable Neut % (Auto) Not Reportable Lymph % (Auto) Not Reportable [place] % (Auto) Not Reportable Eos % (Auto) Not Reportable Baso % (Auto) Not Reportable Lymph # (Auto) Not Reportable [place] # (Auto) Not Reportable Eos # (Auto) Not Reportable Baso # (Auto) Not Reportable Abs Immat Gran (auto) Not Reportable Absolute Neuts (auto) Not Reportable Absolute Nucleated RBC Not Reportable Total Counted 100 Neutrophils % (Manual) 81 H (46-73) % Band Neutrophils % 0 (0-6) % Lymphocytes % (Manual) 9 L (18-44) % Monocytes % (Manual) 9 (3-9) % Eosinophils % (Manual) 1 (0-4) % Basophils % (Manual) 0 (0-1) % Nucleated RBC % Not Reportable Abs Neuts (Manual) 2.51 (1.3-6.7) K/mm3 Abs Lymphs (Manual) 0.27 L (1.1-4.5) K/mm3 Abs Monocytes (Manual) 0.27 (0.1-0.90) K/mm3 Absolute Eos (Manual) 0.03 (0.02-0.50) K/mm3 Abs Basophils (Manual) 0.00 (0.0-0.1) K/mm3 Atypical Lymphocytes Present Platelet Estimate Adequate (Adequate) Schistocytes None seen Sodium 126 L (137-145) mmol/L Potassium 4.3 (3.4-5.0) mmol/L Chloride 95 L (98-107) mmol/L Carbon Dioxide 22 (22-30) mmol/L Anion Gap 9 (4-12) mmol/L BUN 6 L (9-20) mg/dL Creatinine 0.78 (0.7-1.3) mg/dL Estim Creat Clear Calc 74 ml/min Estimated GFR > 60 (59 - ) Glucose 98 (65-110) mg/dL Calcium 9.2 (8.4-10.2) mg/dL Total Bilirubin 0.6 (0.2-1.3) mg/dL AST 36 (17-59) U/L ALT 20 (6-50) U/L Alkaline Phosphatase 54 (38-126) U/L Troponin I < 0.012 (0.000-0.034) ng/mL Total Protein 8.0 (6.3-8.2) g/dL Albumin 4.4 (3.5-5.1) g/dL Influenza A (RT-PCR) Positive A (Negative) Influenza B (RT-PCR) Negative (Negative) RSV (RT-PCR) Negative (Negative) SARS-CoV-2 RNA (RT-PCR) Negative (Negative) <Mary Capone, POISING INSPECTOR - Last Filed: 05/26/24 17:25> Lab Results 05/26/24 Range/Units 13:02 WBC 3.1 L (4.5-10.0) K/mm3 RBC 4.57 L (4.6-6.20) M/mm3 Hgb 15.1 (14.0-18.0) g/dL Hct 43.5 (42.0-52.0) % MCV 95.2 (80-100) fl MCH 33.0 (26-34) pg MCHC 34.7 (32-36) g/dl RDW 12.2 (11.5-14.5) % Plt Count 212 (150-375) k/mm3 MPV 8.4 (7.4-10.4) fl Immature Gran % (Auto) Not Reportable Neut % (Auto) Not Reportable Lymph % (Auto) Not Reportable [place] % (Auto) Not Reportable Eos % (Auto) Not Reportable Baso % (Auto) Not Reportable Lymph # (Auto) Not Reportable [place] # (Auto) Not Reportable Eos # (Auto) Not Reportable Baso # (Auto) Not Reportable Abs Immat Gran (auto) Not Reportable Absolute Neuts (auto) Not Reportable Absolute Nucleated RBC Not Reportable Total Counted 100 Neutrophils % (Manual) 81 H (46-73) % Band Neutrophils % 0 (0-6) % Lymphocytes % (Manual) 9 L (18-44) % Monocytes % (Manual) 9 (3-9) % Eosinophils % (Manual) 1 (0-4) % Basophils % (Manual) 0 (0-1) % Nucleated RBC % Not Reportable Abs Neuts (Manual) 2.51 (1.3-6.7) K/mm3 Abs Lymphs (Manual) 0.27 L (1.1-4.5) K/mm3 Abs Monocytes (Manual) 0.27 (0.1-0.90) K/mm3 Absolute Eos (Manual) 0.03 (0.02-0.50) K/mm3 Abs Basophils (Manual) 0.00 (0.0-0.1) K/mm3 Atypical Lymphocytes Present Platelet Estimate Adequate (Adequate) Schistocytes None seen Sodium 126 L (137-145) mmol/L Potassium 4.3 (3.4-5.0) mmol/L Chloride 95 L (98-107) mmol/L Carbon Dioxide 22 (22-30) mmol/L Anion Gap 9 (4-12) mmol/L BUN 6 L (9-20) mg/dL Creatinine 0.78 (0.7-1.3) mg/dL Estim Creat Clear Calc 74 ml/min Estimated GFR > 60 (59 - ) Glucose 98 (65-110) mg/dL Calcium 9.2 (8.4-10.2) mg/dL Total Bilirubin 0.6 (0.2-1.3) mg/dL AST 36 (17-59) U/L ALT 20 (6-50) U/L Alkaline Phosphatase 54 (38-126) U/L Troponin I < 0.012 (0.000-0.034) ng/mL Total Protein 8.0 (6.3-8.2) g/dL Albumin 4.4 (3.5-5.1) g/dL Influenza A (RT-PCR) Positive A (Negative) Influenza B (RT-PCR) Negative (Negative) RSV (RT-PCR) Negative (Negative) SARS-CoV-2 RNA (RT-PCR) Negative (Negative) <Regla Mcghee MD - Last Filed: 05/27/24 17:53> Imaging Data Radiologist's impression: IMPRESSION: 1. Hyperexpansion of lungs suggestive but not diagnostic of COPD. <Regla Mcghee MD - Last Filed: 05/27/24 17:53> ECG Data EKG #1: Attestation: I personally reviewed and interpreted this ECG as follows: <Regla Mcghee MD - Last Filed: 05/27/24 17:53> ECG completion date: 05/26/24 <Regla Mcghee MD - Last Filed: 05/27/24 17:53> ECG completion time: 13:09 <Regla Mcghee MD - Last Filed: 05/27/24 17:53> Interpretation: Normal sinus rhythm at a rate of 94 beats per minute. [place] interval 142. QRS 87. QT/QTC 325/376. Good R-wave progression across the precordial leads. No T-wave inversions. Normal axis. Possible left atrial enlargement. <Regla Mcghee MD - Last Filed: 05/27/24 17:53> Discharge Plan Discharge Clinical Impression: Leukopenia, Hyponatremia, Influenza A, COPD (chronic obstructive pulmonary disease) <Mary Capone APRN - Last Filed: 05/26/24 17:25> Patient Disposition: Home, Self-Care <Mary Capone APRN - Last Filed: 05/26/24 17:25> Condition: Stable <Mary Capone APRN - Last Filed: 05/26/24 17:25> Instructions: Antibiotic Form, Hyponatremia (ED), Influenza (DC), COPD (Chronic Obstructive Pulmonary Disease) (DC) <Mary Capone APRN - Last Filed: 05/26/24 17:25> Additional Instructions: You list an allergy to NSAIDs but acetaminophen/Tylenol is a different medication and know that it is safe to take a maximum of 4000 mg per day of this medication. Other prescriptions have also been provided for the symptoms you are having. The Tessalon Perles are for a cough but make sure to keep them out of reach of children. The main stays of treatment are to rest and maintain your hydration while here body's immune system fights this viral infection. Follow-up with your primary care physician. Return to the emergency department with any new or worsening symptoms <Mary Capone APRN - Last Filed: 05/26/24 17:25> Patient Language: Albanian <Mary Capone APRN - Last Filed: 05/26/24 17:25> Prescriptions: New acetaminophen 500 mg capsule 1,000 mg PO Q6H PRN (Reason: pain) Qty: 30 0RF benzonatate 100 mg capsule 100 mg PO BID PRN (Reason: cough) Qty: 20 0RF No Action cyclobenzaprine 10 mg tablet 10 mg PO Q12H Qty: 14 0RF hydrocodone-acetaminophen 5-325 mg tablet 1 tablet PO Q6H PRN (Reason: pain) Qty: 14 0RF amlodipine 5 mg tablet 5 mg PO DAILY 30 Days Qty: 30 0RF <Mary Capone APRN - Last Filed: 05/26/24 17:25> Follow-up/Referrals: Justin Olmedo MD [Primary Care Provider] - <Mary Capone APRN - Last Filed: 05/26/24 17:25> Stand Alone Forms: Work/School Release IP <Mary Capone APRN - Last Filed: 05/26/24 17:25> Time of Disposition: 20:35 <Mary Capone APRN - Last Filed: 05/26/24 17:25> 20:35 <Regla Mcghee MD - Last Filed: 05/27/24 17:53>
[2024-05-26] MEDS: predniSONE 20 MG TABLET 60 MG PO (13:05)
[2024-05-26 13:12] LABS: Hematocrit 43.5 % (42.0-52.0); Hemoglobin 15.1 g/dL (14.0-18.0); Mean Corpuscular HGB Conc 34.7 g/dl (32-36); Mean Corpuscular Volume 95.2 fl (80-100); Mean Platelet Volume 8.4 fl (7.4-10.4); Platelet Count Result 212 k/mm3 (150-375); Red Blood Count 4.57 M/mm3 (4.6-6.20); Red Cell Distribution Width 12.2 % (11.5-14.5); White Blood Count 3.1 K/mm3 (4.5-10.0)
[2024-05-26 13:21] LABS: Alanine Aminotransferase 20 U/L (6-50); Albumin Level 4.4 g/dL (3.5-5.1); Alkaline Phosphatase 54 U/L (38-126); Anion Gap 9 mmol/L (4-12); Aspartate Amino Transferase 36 U/L (17-59); Bilirubin,Total 0.6 mg/dL (0.2-1.3); Blood Urea Nitrogen 6 mg/dL (9-20); Calcium 9.2 mg/dL (8.4-10.2); Carbon Dioxide 22 mmol/L (22-30); Chloride 95 mmol/L (98-107); Estimated CRCL calculation 74 ml/min; Estimated Glomerular Filt Rate > 60; Glucose 98 mg/dL (65-110); Potassium 4.3 mmol/L (3.4-5.0); Sodium 126 mmol/L (137-145)
[2024-05-26 13:32] LABS: Troponin I < 0.012 ng/mL (0.000-0.034)
[2024-05-26 13:46] LABS: Band Neutrophils Percent 0 % (0-6); Basophils Percent Manual 0 % (0-1); Eosinophils Absolute Manual 0.03 K/mm3 (0.02-0.50); Eosinophils Percent Manual 1 % (0-4); Lymphocytes Absolute Manual 0.27 K/mm3 (1.1-4.5); Lymphocytes Percent Manual 9 % (18-44); Monocytes Absolute Manual 0.27 K/mm3 (0.1-0.90); Monocytes Percent Manual 9 % (3-9); Neutrophils Absolute Manual 2.51 K/mm3 (1.3-6.7); Neutrophils Percent Manual 81 % (46-73); Total Cells Counted 100
[2024-05-26 13:47] LABS: Platelet Estimate Adequate (Adequate)
[2024-05-26 13:48] LABS: Atypical Lymphocytes Present; Schistocytes None Seen
[2024-05-26 13:49] LABS: Influenza A QL RT-PCR Positive (Negative); Influenza B QL RT-PCR Negative (Negative); RSV RNA, RT-PCR Negative (Negative); SARS-CoV-2 RNA PCR Negative (Negative)
[2024-05-26 17:15] VITALS: PULSE 78; RESP 18
[2024-05-26] MEDS: IPRATROPIUM 0.5 MG/ALBUTEROL SULFATE 2.5 MG AMPUL.NEB 3 ML INHALATION ×3 (17:15→17:31)
[2024-05-26 17:53] VITALS: PULSE 81; RESP 18
--- NOTE | 2024-05-26 18:58 | PC.NURSE ---
Attempted to call pt 3 times, no response.
[2024-05-26 20:40] VITALS: BP 133/76; PULSE 83; RESP 17; TEMP 36.7; O2SAT 98
== END 2024-05-26 20:41 | disposition home or self-care (01) ==
PROVIDERS: Registered Nurse; Emergency Provider Student in an Organized Health Care Education/Training Program; PCP Emergency Medicine
DX: D72.819 Decreased white blood cell count, unspecified (principal); E87.1 Hypo-osmolality and hyponatremia; J10.1 Influenza due to other identified influenza virus with other respiratory manifestations; J44.9 Chronic obstructive pulmonary disease, unspecified; Z20.822 Contact with and (suspected) exposure to COVID-19; F17.210 Nicotine dependence, cigarettes, uncomplicated; F41.9 Anxiety disorder, unspecified; I10 Essential (primary) hypertension; E03.9 Hypothyroidism, unspecified
CPT/HCPCS: 36415; 71046; 80053; 84484; 85025; 87637; 93005; 94640; 99284; J7512

== ENCOUNTER 2025-04-16 16:52 | Observation (INO) | payer OTHER, SELFPAY ==
--- NOTE | ~2025-04-16 | US_ITS ---
EXAMINATION: US venous doppler [facility] DATE: 04/17/2025 08:46 INDICATION: Lower extremity edema. TECHNIQUE: Grayscale ultrasound images without and with compression and Doppler ultrasound images of the bilateral lower extremity veins were obtained. COMPARISON: None. FINDINGS: The visualized portions of right common femoral vein, profunda (deep) femoral vein, femoral vein, popliteal vein, peroneal veins, posterior tibial veins, and greater saphenous vein outflow are patent. The visualized portions of left common femoral vein, profunda femoral vein, femoral vein, popliteal vein, peroneal veins, posterior tibial veins, and greater saphenous vein outflow are patent. IMPRESSION: 1. No deep venous thrombosis in major veins of both lower extremities.. Reviewed, dictated and finalized at location [facility]. [employer]
[2025-04-16 17:37] VITALS: BP 151/95; PULSE 104; RESP 18; TEMP 37; O2SAT 98
--- NOTE | 2025-04-16 22:21 | ED_ITS ---
HPI - Extremity Problem General Chief complaint: Extremity Problem,Nontraumatic Stated complaint: BILATERAL HAND SWELLING Time Seen by Provider: 04/16/25 21:00 Source: patient Mode of arrival: ambulatory Limitations: no limitations History of Present Illness HPI Narrative: Patient presents with report of bilateral hand and feet (particularly ankle) swelling since Saturday. He works at [employer] and is on his feet. He had previously been on omeprazole for hiatal hernia. Hadn't been taking it for awhile but did get some and started it >1 week ago and took several doses. Had previously been on amlodipine for HTN but has been off of that for approximately 1.5 years. Has a PCP but wants a new one as he doesn't care for current one. Denies paresthesias. Drinks 6-7 beers daily for years. Takes generic Mucinex. Denies drug use. No myalgias/arthralgias. Has not taken any OTC meds otherwise such as acetaminophen or NSAIDs. No pain/swelling in calves. Feels like you can normally see the veins in his hands and forearms but less so now. The balls of his feet hurt and he has also noticed some ulceration/skin changes on toes. Related Data Allergies Allergy/AdvReac Type Severity Reaction Status Date / Time aspirin Allergy Severe anaphylactic Verified 04/16/25 16:54 reaction. flurbiprofen Allergy Mild Unknown Verified 04/16/25 16:54 NSAIDS (Non-Steroidal Allergy Unknown Difficulty Verified 04/16/25 16:54 Anti-Inflamma Breathing PMFSH Past Medical History Medical History (Updated 04/18/25 @ 04:55 by Regla Mcghee MD) HTN (hypertension), malignant Chronic hyponatremia Alcoholism Anxiety Hypothyroid Finger fracture Diverticulitis Bronchitis Asthma Surgical History Surgical History History of colostomy with reversal. Social History Social History (Updated 04/17/25 @ 05:52 by Seda Arias APRN) Social History: The patient states that he continues to smoke half a pack a cigarettes a day. He works in the [employer] section at [employer]. He is and has no children. He admits to using marijuana. The patient states that he drinks 6-10 beers a day. Code status: Full code Smoking packs per day: 0.75 Smoking cigarettes per day: 15.0 Smoking status: Current every day smoker Tobacco type: cigarettes Smoking end date: 05/23/24 Alcohol intake: current Drinks per week: 42 Alcohol use details: Drinks 6-10 beers a day. Substance use: current Substance use type: marijuana Lack of Transportation: No Lack of Food: Never True Current Housing: I Have Housing Concerned About Future Housing: No Difficulty Paying Gas/Electric Bills: No Difficulty Paying for Meds: No Currently Unemployed: No Education: Decline to Answer Difficulty w/ Childcare or Family Care: No Occupation/Education: occupation Additional occupation/education comments: Works at [employer] Gender identity (if verbalized by the patient): Male Spiritual care concerns: No Exam 2 Narrative: GENERAL: In no acute distress. HEAD: Normocephalic, atraumatic. EYES: Non injected, non icteric ENT: Nares clear, no rhinorrhea or epistaxis. Gross auditory acuity intact. NECK: Supple. No meningismus. CHEST: Speaking in full sentences. No respiratory distress. HEART: Regular rate and rhythm. . ABDOMEN: Soft, nondistended. No rigidity or guarding. Not peritoneal EXTREMITIES: Normal range of motion. Trace edema at bilateral ankles but no hoda pedal edema. Strong bilateral DP pulses. Great toe with some ulceration/rash. Dorsal aspect of bilateral hands with some mild edema. No tenderness to palpation of bilateral calves which are grossly symmetric. No palpable cord. No tibial edema. SKIN: Warm, dry. NEURO: No focal deficits. Alert and oriented. Answering questions. Following commands. Normal speech without aphasia or dysarthria. Sensation intact throughout hands and bilateral lower extremities PSYCH: Congruent mood and affect. Course Vital Signs Vital signs: Vital Signs Temperature 98.6 F 04/16/25 17:37 Pulse Rate 104 H 04/16/25 17:37 Respiratory Rate 18 04/16/25 17:37 Blood Pressure 151/95 H 04/16/25 17:37 Pulse Oximetry 98 04/16/25 17:37 Oxygen Delivery Room Air 04/16/25 17:37 Temperature 97.8 F 04/17/25 21:04 Pulse Rate 79 04/17/25 21:04 Respiratory Rate 18 04/17/25 21:04 Blood Pressure 143/84 H 04/17/25 21:04 Pulse Oximetry 96 04/17/25 21:04 Oxygen Delivery Room Air 04/17/25 20:31 Fraction of Inspired Oxygen 21 04/17/25 20:31 [facility] Narrative Medical decision making narrative: Patient presents with concern for bilateral hand and ankle swelling. In the emergency department he is afebrile with vital signs notable for mild tachycardia as well as hypertension. ESR normal. BMP with normal renal function. He has chronic hyponatremia. CBC with mild abnormalities on the differential but otherwise without leukocytosis, anemia, thrombocytopenia. BNP is mildly elevated however not greater than 900 which would be the reference range of the assay for patient's age. UDS positive for cannabinoids. CRP normal. CPK >2000. Previously normal. Given the concern for rhabdomyolysis, IV start and 2 Liters of IV fluids ordered. Discussed with patient who is amenable to admission. Accepted for obs admission after discussing with sin Seda. Maintenance fluids ordered as well with repeat CPK level for morning. Differential Diagnosis Differential Diagnosis: heart failure, symptomatic anemia, electrolyte abnormalities, rhabdomyolysis, medication side effect; lymphedema/dependent edema Medical Records I have reviewed the following patient records and this information was taken into consideration when formulating the assessment and plan.: previous labs Lab Data [facility] Lab Attestation statement: I personally reviewed the patient's lab results. 04/17/25 06:22 04/17/25 06:22 Labs: Lab Results 04/16/25 04/16/25 Range/Units 22:38 22:40 WBC 6.2 (4.5-10.0) K/mm3 RBC 4.70 (4.6-6.20) M/mm3 Hgb 15.2 (14.0-18.0) g/dL Hct 43.8 (42.0-52.0) % MCV 93.2 (80-100) fl MCH 32.3 (26-34) pg MCHC 34.7 (32-36) g/dl RDW 13.2 (11.5-14.5) % Plt Count 278 (150-375) k/mm3 MPV 8.0 (7.4-10.4) fl Immature Gran % (Auto) 0.3 (0-0.5) % Neut % (Auto) 76.8 H (45.5-73.1) % Lymph % (Auto) 12.8 L (18.3-44.2) % [place] % (Auto) 8.7 H (2.6-8.5) % Eos % (Auto) 1.1 (0-4.4) % Baso % (Auto) 0.3 (0.2-1.2) % Lymph # (Auto) 0.80 L (0.9-3.2) K/mm3 [place] # (Auto) 0.5 (0.1-0.6) K/mm3 Eos # (Auto) 0.1 (0-0.3) K/mm3 Baso # (Auto) 0.0 (0.0-0.1) K/mm3 Abs Immat Gran (auto) 0.02 (0.00-0.031) K/mm3 Absolute Neuts (auto) 4.8 (1.3-6.7) K/mm3 Absolute Nucleated RBC 0.000 (0.0-0.012) K/mm3 Nucleated RBC % 0.0 (0.0-0.2) % ESR 1 (0-20) mm/hr Sodium 126 L (137-145) mmol/L Potassium 4.2 (3.4-5.0) mmol/L Chloride 96 L (98-107) mmol/L Carbon Dioxide 31 H (22-30) mmol/L Anion Gap -1 L (4-12) mmol/L BUN 6 L (9-20) mg/dL Creatinine 0.68 L (0.7-1.3) mg/dL Estim Creat Clear Calc 91 ml/min Estimated GFR > 60 (59 - ) Glucose 93 (65-110) mg/dL Calcium 8.6 (8.4-10.2) mg/dL Magnesium 1.9 (1.6-2.3) mg/dL Total Creatine Kinase 2243 H (55-170) U/L C-Reactive Protein 0.9 (<1.0) mg/dL NT-Pro-B Natriuret Pep 422 H (19.9-100) pg/mL Urine Opiates Screen Negative (Negative) Urine Methadone Screen Negative (Negative) Ur Barbiturates Screen Negative (Negative) Ur Phencyclidine Scrn Negative (Negative) Ur Amphetamine Screen Negative (Negative) U Benzodiazepines Scrn Negative (Negative) Urine Cocaine Screen Negative (Negative) U Cannabinoids Screen Positive A (Negative) Imaging Data Radiologist's impression: ITS Impressions Venous Doppler Study 04/17/25 13:58 IMPRESSION: 1. No deep venous thrombosis in major veins of both lower extremities.. Discharge Plan Discharge Clinical Impression: Swelling of both ankles, Swelling of both hands, Chronic hyponatremia, Marijuana use, Daily consumption of alcohol, Rhabdomyolysis Patient Disposition: Still a Patient Condition: Stable Time of Disposition: 01:06
[2025-04-16 22:47] LABS: Hematocrit 43.8 % (42.0-52.0); Hemoglobin 15.2 g/dL (14.0-18.0); Immature Granulocyte Percent A 0.3 % (0-0.5); Lymphocytes Absolute Auto 0.80 K/mm3 (0.9-3.2); Mean Corpuscular HGB Conc 34.7 g/dl (32-36); Mean Corpuscular Hemoglobin 32.3 pg (26-34); Mean Corpuscular Volume 93.2 fl (80-100); Nucleated Red Blood Cells Absolute Auto 0.000 K/mm3 (0.0-0.012); Nucleated Red Blood Cells Perc 0.0 % (0.0-0.2); Platelet Count Result 278 k/mm3 (150-375); Red Blood Count 4.70 M/mm3 (4.6-6.20); White Blood Count 6.2 K/mm3 (4.5-10.0)
[2025-04-16 23:15] LABS: NT Pro B Type Natriuretic Pept 422 pg/mL (19.9-100)
[2025-04-16 23:24] LABS: Anion Gap -1 mmol/L (4-12); Blood Urea Nitrogen 6 mg/dL (9-20); Calcium 8.6 mg/dL (8.4-10.2); Carbon Dioxide 31 mmol/L (22-30); Chloride 96 mmol/L (98-107); Estimated CRCL calculation 91 ml/min; Estimated Glomerular Filt Rate > 60; Glucose 93 mg/dL (65-110); Magnesium 1.9 mg/dL (1.6-2.3); Potassium 4.2 mmol/L (3.4-5.0); Sodium 126 mmol/L (137-145)
[2025-04-16 23:37] LABS: Cannabinoid Screen Urine Positive (Negative)
[2025-04-17 00:48] LABS: CRP 0.9 mg/dL (<1.0)
[2025-04-17 00:51] LABS: Creatine Kinase 2243 U/L (55-170)
[2025-04-17 01:21] VITALS: BP 141/96; PULSE 87; RESP 18; TEMP 36.6; O2SAT 97
[2025-04-17] MEDS: SODIUM CHLORIDE 0.9% IV 1,000 ML 999 ML IV CONT ×2 (01:37→01:38)
[2025-04-17] MEDS: ACETAMINOPHEN 325 MG TABLET 650 MG PO (01:37)
[2025-04-17] MEDS: SODIUM CHLORIDE 0.9% IV 1,000 ML 125 ML IV CONT ×3 (01:38→16:41)
--- NOTE | 2025-04-17 02:14 | WPCEDHO ---
ED Hand Off Checklist All vitals saved:yes IV Site documented:yes All med administrations documented:yes Triage Note Triage Note PT TO ED C/O SWELLING TO 04/16/25 20:52 BILATERAL HAND AND FEET. DURATION OF ONE WEEK. pt stated take amlodipine and my hands and feet have been swelling. drink 6 or 7 beers daily for many years denies any other drug use. Allergies aspirin Allergy (Severe, Verified 04/16/25 16:54) anaphylactic reaction. flurbiprofen Allergy (Mild, Verified 04/16/25 16:54) Unknown NSAIDS (Non-Steroidal Anti-Inflamma Allergy (Unknown, Verified 04/16/25 16:54) Difficulty Breathing Active Medications including assessments/comments Acetaminophen (Acetaminophen 325 Mg Tablet) 650 mg PO Q4H PRN PRN Reason: Mild Pain (1-3) or Fever Last Admin: 04/17/25 01:37 Dose: 650 mg Documented By: TARIQ MAR Pain Assessment Document 04/17/25 01:37 TARIQ (Rec: 04/17/25 01:37 TARIQ [id number]) Pain Evaluation Pain Evaluation Assessment Pain Scale Pain Scale Used Numeric (1 - 10) Self Report Pain Assessment Reported Pain Level 6 Pain Score Pain Score 6: Self Report Sodium Chloride (Normal Saline Iv) 1,000 mls @ 125 mls/hr IV CONT .Q8H [place] Last Admin: 04/17/25 01:38 Dose: 125 mls/hr Documented By: TARIQ Infusion/Titration Document 04/17/25 01:38 TARIQ (Rec: 04/17/25 01:38 TARIQ [id number]) Intake IV Site Peripheral Access Right Wrist Container Volume 1,000 Waste Amount 0 Dosing Infusion Rate 125 Cumulative Dose Not Applicable Increase/Decrease Started Elapsed Time Elapsed Time ( 0m minutes) Administered/Completed Medications Discontinued Medications Sodium Chloride (Normal Saline Iv) 1,000 mls @ 999 mls/hr IV CONT .Q1H1M STA Stop: 04/17/25 02:05 Last Admin: 04/17/25 01:37 Dose: 999 mls/hr Documented By: TARIQ Sodium Chloride (Normal Saline Iv) 1,000 mls @ 999 mls/hr IV CONT .Q1H1M STA Stop: 04/17/25 02:05 Last Admin: 04/17/25 01:38 Dose: 999 mls/hr Documented By: EMW Interventions/Assessments IV / Saline Lock, Insert Start: 04/17/25 01:05 Freq: ONCE Status: Active Protocol: Document 04/17/25 01:37 EMW (Rec: 04/17/25 01:37 EMW [id number]) IV Assessment Peripheral Access Right Wrist IV Catheter Access Initiated IV Insertion Date 04/17/25 IV Insertion Time 01:37 Catheter Gauge 20 Ultrasound Used for No Placement IV Site Assessment WNL IV Care and WNL Maintenance Last Vital Signs Temperature 98 F 04/17/25 01:21 Pulse Rate 87 04/17/25 01:21 Respiratory Rate 18 04/17/25 01:21 Pulse Oximetry 97 04/17/25 01:21 Blood Pressure 141/96 H 04/17/25 01:21 Blood Pressure Mean 111 04/17/25 01:21 Blood Pressure Position Sitting 04/17/25 01:21 Oxygen Delivery Room Air 04/16/25 17:37 Weight 60 kg 04/16/25 17:37 Last Result - Abnormals Only Neut % (Auto) 76.8 % (45.5-73.1) H 04/16/25 22:38 Lymph % (Auto) 12.8 % (18.3-44.2) L 04/16/25 22:38 [place] % (Auto) 8.7 % (2.6-8.5) H 04/16/25 22:38 Lymph # (Auto) 0.80 K/mm3 (0.9-3.2) L 04/16/25 22:38 Sodium 126 mmol/L (137-145) L 04/16/25 22:38 Chloride 96 mmol/L (98-107) L 04/16/25 22:38 Carbon Dioxide 31 mmol/L (22-30) H 04/16/25 22:38 Anion Gap -1 mmol/L (4-12) L 04/16/25 22:38 BUN 6 mg/dL (9-20) L 04/16/25 22:38 Creatinine 0.68 mg/dL (0.7-1.3) L 04/16/25 22:38 Total Creatine Kinase 2243 U/L (55-170) H 04/16/25 22:38 NT-Pro-B Natriuret Pep 422 pg/mL (19.9-100) H 04/16/25 22:38 U Cannabinoids Screen Positive (Negative) A 04/16/25 22:40 Most Recent Suicide Severity Rating Suicide Severity Rating NO RISK INDICATED 04/16/25 20:52
[2025-04-17 02:43] VITALS: BP 140/85; PULSE 90; RESP 12; TEMP 36.7; O2SAT 95
[2025-04-17 02:55] VITALS: BMI 19.1
--- NOTE | 2025-04-17 03:01 | ADMGEN ---
This patient, Cruz Sow, was admitted to [facility] Surg Room 316-01. Patient/family oriented to hospital policies and general routines including ID bracelet, bed and alarms, visiting hours, pain management, procedures, bathroom and other care routines, personal items, smoking policy, room service/diet, and visiting hours. Information on how to activate the Rapid Response Team has been discussed. Patient/Family are encouraged to report perceived risks to care and to ask questions if they do not understand what they are told or what they should do.
--- NOTE | 2025-04-17 05:38 | P.HP_ITS ---
H&P: HPI History of Present Illness Date/Time: 04/17/25 05:38 Chief Complaint: bilateral Swelling of hands and feet . Narrative: This is a 54-year-old male patient who has a history of hypertension and typically takes amlodipine. However, the patient stated that he is been out of his medication for over a week now. He has a history of alcoholism and drinks 6-8 beers a night. Patient's sodium levels 126. Potassium was normal. Total creatinine kinase 2243. BNP 422. Toxicology screen was positive for cannabinoids. He stated that he has been eating a lot of processed an on healthy food recently. The patient was bolused with 2 L of IV fluids and given maintenance fluids. Patient has no other complaints. The patient is being admitted to observation status on the date of service of toe 11/08/2024. Review of Systems Constitutional: Constitutional: Reports as per HPI and Reports no additional c onstitutional complaints Eyes: Eyes: Reports as per HPI and Reports no additional eye complaints ENT: Reports system reviewed and no additional complaints, except as documented and Reports Normal hearing present Cardiovascular: Cardiovascular: Reports no additional cardiovascular complaints Respiratory: Respiratory: Reports as per HPI and Reports no additional respiratory complaints Gastrointestinal: Gastrointestinal: Reports as per HPI and Reports no additional gastrointestinal complaints Musculoskeletal: Musculoskeletal: Reports no additional musculoskeletal complaints Integumentary/Breasts: Skin/Breast: Reports system reviewed and no additional complaints, except as docu Neurologic: Reports system reviewed and no additional complaints, except as documented and Reports Normal hearing present Psychiatric: Psychiatric: Reports no additional psychiatric complaints and Reports as per HPI Hematologic/Lymphatic: Hematologic/Lymphatic: Reports no additional hematologic/lymphatic complaints Allergic/Immunologic: Allergic/Immunologic: Reports no additional allergic/immunologic complaints [facility] Past Medical History Medical History (Updated 04/17/25 @ 06:01 by Seda Arias APRN) HTN (hypertension), malignant Chronic hyponatremia Alcoholism Anxiety Hypothyroid Finger fracture Diverticulitis Bronchitis Asthma H/O: HTN (hypertension) Surgical History Surgical History History of colostomy with reversal. Social History Social History (Updated 04/17/25 @ 05:52 by Seda Arias APRN) Social History: The patient states that he continues to smoke half a pack a cigarettes a day. He works in the [employer] at [employer]. He is and has no children. He admits to using marijuana. The patient states that he drinks 6-10 beers a day. Code status: Full code Smoking packs per day: 0.75 Smoking cigarettes per day: 15.0 Smoking status: Current every day smoker Tobacco type: cigarettes Smoking end date: 05/23/24 Alcohol intake: current Drinks per week: 42 Alcohol use details: Drinks 6-10 beers a day. Substance use: current Substance use type: marijuana Lack of Transportation: No Lack of Food: Never True Current Housing: I Have Housing Concerned About Future Housing: No Difficulty Paying Gas/Electric Bills: No Difficulty Paying for Meds: No Currently Unemployed: No Education: Decline to Answer Difficulty w/ Childcare or Family Care: No Occupation/Education: occupation Additional occupation/education comments: Works at [employer] Gender identity (if verbalized by the patient): Male Spiritual care concerns: No Meds Home Medications and Allergies Home Medications ?Medication ?Instructions ?Recorded ?Confirmed ?Type amlodipine 5 mg tablet 5 mg PO DAILY 30 days #30 ta bs 11/10/23 04/17/25 Rx acetaminophen 500 mg capsule 1,000 mg (2 x 500 mg) PO Q6H PRN 05/26/24 04/17/25 Rx pain #30 caps Allergies Allergy/AdvReac Type Severity Reaction Status Date / Time aspirin Allergy Severe anaphylactic Verified 04/16/25 16:54 reaction. flurbiprofen Allergy Mild Unknown Verified 04/16/25 16:54 NSAIDS (Non-Steroidal Allergy Unknown Difficulty Verified 04/16/25 16:54 Anti-Inflamma Breathing Vital Signs Vital Signs - 24 hr 04/16/25 17:37 04/17/25 01:21 04/17/25 02:43 Temperature 98.6 F 98 F 98.1 F Pulse Rate 104 H 87 90 Respiratory Rate 18 18 12 Blood Pressure 151/95 H 141/96 H 140/85 Pulse Oximetry 98 97 95 Oxygen Delivery Room Air Exam Const: General: cooperative, comfortable, no acute distress, well developed, awake, Physically active and average body habitus Nutritional Appearance: well nourished Orientation/consciousness: oriented to person, oriented to place, oriented to time and patient oriented x3 Limitations: no limitations HENMT: Head: normal to inspection, No palpable skull fracture present and normocephalic Eyes: General: appearance normal, both eyes and all related structures Alignment and Position: alignment normal Periorbital: periorbital findings normal Eyelids: eyelids normal Neck: Neck: normal visual inspection and full ROM Resp: Effort & Inspection: normal respiratory effort Auscultation: clear to auscultation bilaterally Cardio: Palpation: normal PMI Rate: regular rate Rhythm: regular rhythm GI: Inspection: normal to inspection Percussion: Yes normal to percussion Auscultation: normal bowel sounds Rectal Exam: deferred Back/Spine/Pelvis: Back: no CVA tenderness Cervical Spine: cervical ROM normal Skin: General skin exam: normal color Lesions: no lesions Rashes: no rashes Trauma: no lacerations or abrasions Wounds: no wounds Hair: normal Nails: normal Neuro: General: oriented to person, oriented to place, oriented to time and patient oriented x3 Cranial nerves: Yes Normal hearing present Cognition (Neuro): normal cognition Speech: normal speech Gait exam (Neuro): Normal gait present Motor exam (neuro): 5/5 motor strength present throughout Sensory Exam: normal sensation Extrem: General: normal to inspection Right upper extremity: normal to inspection and shoulder/upper arm Left upper extremity: normal to inspection and shoulder/upper arm Right lower extremity: normal to inspection Left lower extremity: normal to inspection Other: Trace edema at to lower extremities and bilateral hands. Psych: Appearance: grossly normal Mental Status: mental status grossly normal Speech and movement: Normal speech and movement present Affect: normal affect Attitude: cooperative Thought process: Normal thought process present Thought content: Yes Normal thought content present Insight: Good insight present (Psych) Judgement: Good judgement present (Psych) Results Labs Labs: Short CBC 04/16/25 Range/Units 22:38 WBC 6.2 (4.5-10.0) K/mm3 Hgb 15.2 (14.0-18.0) g/dL Hct 43.8 (42.0-52.0) % Plt Count 278 (150-375) k/mm3 BMP 04/16/25 22:38 Sodium 126 L Potassium 4.2 Chloride 96 L Carbon Dioxide 31 H BUN 6 L Creatinine 0.68 L Glucose 93 Calcium 8.6 Cardiac Enzymes 04/16/25 Range/Units 22:38 Total Creatine Kinase 2243 H (55-170) U/L Attestation: I personally reviewed all lab results Quality VTE Prophylaxis VTE prophylaxis: mechanical ordered Assessment and Plan Assessment and plan (1) Rhabdomyolysis: Code(s): M62.82 - Rhabdomyolysis Status: Acute Assessment and Plan: -patient CK was 2243. -the patient stated that he had a seizure in the past but no seizure was noted this time. The patient does not believe that he has had a seizure. -the patient has not excessively worked out. -is not taking any medication that can cause rhabdo. -patient was given 2 bags of IV fluids in the emergency room and a maintenance dose of IV fluids for maintain. -repeat CK this morning. -the patient is wanting to be discharged today if all possible (2) Swelling of both hands: Code(s): M79.89 - Other specified soft tissue disorders Status: Acute Assessment and Plan: -initially I thought it was from his amlodipine however the patient stated he has not been taking it over the last week. -however he stated that he has been eating unhealthy. -his sodium levels chronically low and does not typically have swelling in his hands and feet. -check venous Doppler to rule out DVT. (3) Chronic hyponatremia: Code(s): E87.1 - Hypo-osmolality and hyponatremia Status: Acute Assessment and Plan: -check urine sodium and urine osmolality -most likely secondary to beer potomania (4) Alcoholism: Code(s): F10.20 - Alcohol dependence, uncomplicated Status: Acute Assessment and Plan: -ciwa has been initiated. -folic acid p.o. -thiamin p.o. -magnesium was 1.9 which is normal. -p.r.n. Librium (5) HTN (hypertension), malignant: Code(s): I10 - Essential (primary) hypertension Status: Acute Assessment and Plan: -p.r.n. hydralazine with parameters -amlodipine is on hold at this time as he has not been taking it the last week. Explained to him that amlodipine can cause some edema. However he has not been on it for the last week.
[2025-04-17 05:58] VITALS: BP 151/88; PULSE 80; RESP 16; TEMP 36.8; O2SAT 98
[2025-04-17 06:33] LABS: Hematocrit 39.3 % (42.0-52.0); Hemoglobin 13.5 g/dL (14.0-18.0); Mean Corpuscular HGB Conc 34.4 g/dl (32-36); Mean Corpuscular Hemoglobin 32.1 pg (26-34); Mean Corpuscular Volume 93.6 fl (80-100); Platelet Count Result 252 k/mm3 (150-375); Red Blood Count 4.20 M/mm3 (4.6-6.20); White Blood Count 6.4 K/mm3 (4.5-10.0)
[2025-04-17 06:57] LABS: Anion Gap 0 mmol/L (4-12); Blood Urea Nitrogen 7 mg/dL (9-20); Calcium 7.5 mg/dL (8.4-10.2); Carbon Dioxide 25 mmol/L (22-30); Chloride 102 mmol/L (98-107); Estimated CRCL calculation 94 ml/min; Estimated Glomerular Filt Rate > 60; Glucose 128 mg/dL (65-110); Potassium 3.9 mmol/L (3.4-5.0); Sodium 127 mmol/L (137-145)
[2025-04-17 07:12] LABS: Creatine Kinase 2190 U/L (55-170)
[2025-04-17] MEDS: THIAMINE HCL 100 MG TABLET PO (08:48)
[2025-04-17] MEDS: FOLIC ACID 1 MG TABLET PO (08:48)
--- NOTE | 2025-04-17 09:20 | PM.IMPN2 ---
Assessment and Plan Assessment and Plan (1) Rhabdomyolysis: Code(s): M62.82 - Rhabdomyolysis Status: Acute Assessment and Plan: -patient CK was 2243. -the patient stated that he had a seizure in the past but no seizure was noted this time. The patient does not believe that he has had a seizure. -the patient has not excessively worked out. -is not taking any medication that can cause rhabdo. -patient was given 2 bags of IV fluids in the emergency room and a maintenance dose of IV fluids for maintain. -repeat CK this morning. -the patient is wanting to be discharged today if all possible ------ ck is trending down (2) Swelling of both hands: Code(s): M79.89 - Other specified soft tissue disorders Status: Acute Assessment and Plan: -initially I thought it was from his amlodipine however the patient stated he has not been taking it over the last week. -however he stated that he has been eating unhealthy. -his sodium levels chronically low and does not typically have swelling in his hands and feet. -check venous Doppler to rule out DVT. (3) Chronic hyponatremia: Code(s): E87.1 - Hypo-osmolality and hyponatremia Status: Acute Assessment and Plan: -check urine sodium and urine osmolality -most likely secondary to beer potomania - regular diet monitor daily labs (4) Alcoholism: Code(s): F10.20 - Alcohol dependence, uncomplicated Status: Acute Assessment and Plan: -ciwa has been initiated. -folic acid p.o. -thiamin p.o. -magnesium was 1.9 which is normal. -p.r.n. Librium (5) HTN (hypertension), malignant: Code(s): I10 - Essential (primary) hypertension Status: Acute Assessment and Plan: -p.r.n. hydralazine with parameters -amlodipine is on hold at this time as he has not been taking it the last week. Explained to him that amlodipine can cause some edema. However he has not been on it for the last week. Medical Record Review I have reviewed the following patient records and this information was taken into consideration when formulating the assessment and plan.: previous labs and previous clinic visits Time Spent With Patient Time with patient: 25 - 35 minutes Subjective Date/time seen: 04/17/25 09:20 Interval history: This is a 54-year-old male patient who has a history of hypertension and typically takes amlodipine. However, the patient stated that he is been out of his medication for over a week now. He has a history of alcoholism and drinks 6-8 beers a night. Patient's sodium levels 126. Potassium was normal. Total creatinine kinase 2243. BNP 422. Toxicology screen was positive for cannabinoids. He stated that he has been eating a lot of processed an on healthy food recently. The patient was bolused with 2 L of IV fluids and given maintenance fluids. Patient has no other complaints Pt is seen and examined. he is resting in bed with eyes closed. denies any pain, no n/v/d. Review of Systems Constitutional: Constitutional: Reports as per HPI and Reports no additional constitutional complaints Eyes: Eyes: Reports as per HPI and Reports no additional eye complaints ENT: Reports system reviewed and no additional complaints, except as documented and Reports Normal hearing present Cardiovascular: Cardiovascular: Reports no additional cardiovascular complaints Respiratory: Respiratory: Reports as per HPI and Reports no additional respiratory complaints Gastrointestinal: Gastrointestinal: Reports as per HPI and Reports no additional gastrointestinal complaints Musculoskeletal: Musculoskeletal: Reports no additional musculoskeletal complaints Integumentary/Breasts: Skin/Breast: Reports system reviewed and no additional complaints, except as docu Neurologic: Reports system reviewed and no additional complaints, except as documented and Reports Normal hearing present Psychiatric: Psychiatric: Reports no additional psychiatric complaints and Reports as per HPI Hematologic/Lymphatic: Hematologic/Lymphatic: Reports no additional hematologic/lymphatic complaints Allergic/Immunologic: Allergic/Immunologic: Reports no additional allergic/immunologic complaints Exam Const: General: cooperative, comfortable, no acute distress, well developed, awake, Physically active, average body habitus and well nourished Nutritional Appearance: average body habitus and well nourished Orientation/consciousness: oriented to person, oriented to place, oriented to time and patient oriented x3 Limitations: no limitations HENMT: Head: normal to inspection, No palpable skull fracture present and normocephalic Eyes: General: appearance normal, both eyes and all related structures Alignment and Position: alignment normal Periorbital: periorbital findings normal Eyelids: eyelids normal Neck: Neck: normal visual inspection and full ROM Resp: Effort & Inspection: normal respiratory effort Auscultation: clear to auscultation bilaterally Cardio: Palpation: normal PMI Rate: regular rate Rhythm: regular rhythm GI: Inspection: normal to inspection Auscultation: normal bowel sounds Rectal Exam: deferred : General: Yes no CVA tenderness Back/Spine/Pelvis: Back: no CVA tenderness Cervical Spine: cervical ROM normal Skin: General skin exam: normal color Lesions: no lesions Rashes: no rashes Trauma: no lacerations or abrasions Wounds: no wounds Hair: normal Nails: normal Neuro: General: oriented to person, oriented to place, oriented to time and patient oriented x3 Cranial nerves: Yes Normal hearing present Cognition (Neuro): normal cognition Speech: normal speech Gait exam (Neuro): Normal gait present Motor exam (neuro): 5/5 motor strength present throughout Sensory Exam: normal sensation Extrem: General: normal to inspection Right upper extremity: normal to inspection and shoulder/upper arm Left upper extremity: normal to inspection and shoulder/upper arm Right lower extremity: normal to inspection Left lower extremity: normal to inspection Other: Trace edema at to lower extremities and bilateral hands. Psych: Appearance: grossly normal Mental Status: mental status grossly normal Speech and movement: Normal speech and movement present Affect: normal affect Attitude: cooperative Thought process: Normal thought process present Insight: Good insight present (Psych) Judgement: Good judgement present (Psych) Objective Data Vital Signs Vital Signs: Vital Signs - 24 hr 04/16/25 17:37 04/17/25 01:21 04/17/25 02:43 Temperature 98.6 F 98 F 98.1 F Pulse Rate 104 H 87 90 Respiratory Rate 18 18 12 Blood Pressure 151/95 H 141/96 H 140/85 Pulse Oximetry 98 97 95 Oxygen Delivery Room Air 04/17/25 05:58 Temperature 98.3 F Pulse Rate 80 Respiratory Rate 16 Blood Pressure 151/88 H Pulse Oximetry 98 Oxygen Delivery Intake/Output Intake/Output: Intake & Output 04/14/25 04/15/25 04/16/25 04/17/25 23:59 23:59 23:59 23:59 Intake Total 1110.4 Balance 1110.4 Meds/Results Medications: Active Medications Generic Name Dose Route Start Last Admin Trade Name Freq PRN Reason Stop Dose Admin Acetaminophen 650 mg 04/17/25 01:11 04/17/25 01:37 Acetaminophen 325 Mg Tablet PO 650 mg Q4H PRN Administration Mild Pain (1-3) or Fever Chlordiazepoxide HCl 10 mg 04/17/25 05:49 Chlordiazepoxide (*Crx) 10 Mg Capsule PO Q6H PRN Anxiety Folic Acid 1 mg 04/17/25 09:00 04/17/25 08:48 Folic Acid 1 Mg Tablet PO 1 mg DAILY [place] Administration Hydralazine HCl 10 mg 04/17/25 05:50 Hydralazine Hcl 20 Mg/Ml Vial IV PUSH Q8H PRN Blood Pressure - High Sodium Chloride 1,000 mls @ 125 mls/hr 04/17/25 01:15 04/17/25 08:55 Normal Saline Iv IV CONT 125 mls/hr .Q8H [place] Administration Ondansetron HCl 4 mg 04/17/25 01:11 Ondansetron Inj 4 Mg/2 Ml Vial IV PUSH Q4H PRN Nausea Thiamine HCl 100 mg 04/17/25 09:00 04/17/25 08:48 Thiamine Hcl 100 Mg Tablet PO 100 mg QAM [place] Administration Labs Labs: Laboratory Results - last 24 hr 04/16/25 04/16/25 04/17/25 22:38 22:40 06:22 WBC 6.2 6.4 RBC 4.70 4.20 L Hgb 15.2 13.5 L Hct 43.8 39.3 L MCV 93.2 93.6 MCH 32.3 32.1 MCHC 34.7 34.4 RDW 13.2 13.3 Plt Count 278 252 MPV 8.0 8.1 Immature Gran % (Auto) 0.3 Neut % (Auto) 76.8 H Lymph % (Auto) 12.8 L [place] % (Auto) 8.7 H Eos % (Auto) 1.1 Baso % (Auto) 0.3 Lymph # (Auto) 0.80 L [place] # (Auto) 0.5 Eos # (Auto) 0.1 Baso # (Auto) 0.0 Abs Immat Gran (auto) 0.02 Absolute Neuts (auto) 4.8 Absolute Nucleated RBC 0.000 Nucleated RBC % 0.0 ESR 1 Sodium 126 L 127 L Potassium 4.2 3.9 Chloride 96 L 102 Carbon Dioxide 31 H 25 Anion Gap -1 L 0 L BUN 6 L 7 L Creatinine 0.68 L 0.66 L Estim Creat Clear Calc 91 94 Estimated GFR > 60 > 60 Glucose 93 128 H Calcium 8.6 7.5 L Magnesium 1.9 Total Creatine Kinase 2243 H 2190 H C-Reactive Protein 0.9 NT-Pro-B Natriuret Pep 422 H Urine Opiates Screen Negative Urine Methadone Screen Negative Ur Barbiturates Screen Negative Ur Phencyclidine Scrn Negative Ur Amphetamine Screen Negative U Benzodiazepines Scrn Negative Urine Cocaine Screen Negative U Cannabinoids Screen Positive A Quality VTE Prophylaxis VTE prophylaxis: mechanical ordered
[2025-04-17 19:31] VITALS: BP 155/88; PULSE 89; RESP 20; TEMP 36.6; O2SAT 94
[2025-04-17] MEDS: ALBUTEROL SULFATE (*SP) AEROSOL 1 PUFF 2 PUFF INHALATION (20:30)
[2025-04-17 20:31] VITALS: PULSE 80; RESP 18; O2SAT 92
[2025-04-17 21:04] VITALS: BP 143/84; PULSE 79; RESP 18; TEMP 36.6; O2SAT 96
[2025-04-18] MEDS: SODIUM CHLORIDE 0.9% IV 1,000 ML 125 ML IV CONT ×2 (01:00→08:28)
[2025-04-18 06:00] VITALS: BP 135/81; PULSE 73; RESP 20; TEMP 36.7; O2SAT 93
[2025-04-18 06:42] LABS: Hematocrit 39.9 % (42.0-52.0); Hemoglobin 13.5 g/dL (14.0-18.0); Mean Corpuscular HGB Conc 33.8 g/dl (32-36); Mean Corpuscular Hemoglobin 32.4 pg (26-34); Mean Corpuscular Volume 95.7 fl (80-100); Platelet Count Result 253 k/mm3 (150-375); Red Blood Count 4.17 M/mm3 (4.6-6.20); White Blood Count 7.1 K/mm3 (4.5-10.0)
[2025-04-18 07:11] LABS: Anion Gap -2 mmol/L (4-12); Blood Urea Nitrogen 5 mg/dL (9-20); Calcium 7.6 mg/dL (8.4-10.2); Carbon Dioxide 26 mmol/L (22-30); Chloride 104 mmol/L (98-107); Estimated CRCL calculation 95 ml/min; Estimated Glomerular Filt Rate > 60; Glucose 82 mg/dL (65-110); Potassium 4.0 mmol/L (3.4-5.0); Sodium 128 mmol/L (137-145)
[2025-04-18 07:19] LABS: Creatine Kinase 2154 U/L (55-170)
[2025-04-18] MEDS: THIAMINE HCL 100 MG TABLET PO (08:28)
[2025-04-18] MEDS: FOLIC ACID 1 MG TABLET PO (08:28)
[2025-04-18 14:00] VITALS: BP 124/76; PULSE 75; RESP 20; TEMP 36.9; O2SAT 97
[2025-04-18 14:14] LABS: Alanine Aminotransferase 76 U/L (6-50); Albumin Level 2.3 g/dL (3.5-5.1); Alkaline Phosphatase 54 U/L (38-126); Aspartate Amino Transferase 163 U/L (17-59); Bilirubin,Total 0.4 mg/dL (0.2-1.3); Total Protein 5.3 g/dL (6.3-8.2)
--- NOTE | 2025-04-18 14:14 | P.DS_ITS ---
DS: Admitting Diagnosis Discharge Date 04/18/2025 Admitting Diagnosis Rhabdomyolysis Hyponatremia DS: Discharge Diagnosis Discharge Diagnosis (1) Daily consumption of alcohol: Code(s): Z78.9 - Other specified health status Status: Acute (2) Alcoholism: Code(s): F10.20 - Alcohol dependence, uncomplicated Status: Acute (3) Chronic hyponatremia: Code(s): E87.1 - Hypo-osmolality and hyponatremia Status: Acute (4) Rhabdomyolysis: Code(s): M62.82 - Rhabdomyolysis Status: Acute DS: Summary Hospital Course Reason for hospitalization: Copied from [facility] 04/17: This is a 54-year-old male patient who has a history of hypertension and typically takes amlodipine. However, the patient stated that he is been out of his medication for over a week now. He has a history of alcoholism and drinks 6-8 beers a night. Patient's sodium levels 126. Potassium was normal. Total creatinine kinase 2243. BNP 422. Toxicology screen was positive for cannabinoids. He stated that he has been eating a lot of processed an on healthy food recently. The patient was bolused with 2 L of IV fluids and given maintenance fluids. Patient has no other complaints. The patient is being admitted to observation status on the date of service of toe 11/08/2024. Hospital Course: The patinet was treated for hyponatremia and mild rhabdomyolysis in the setting of alcohol abuse. CK improving slowly 2243>2154. Started IV fluids, eating and drinking well prior to discharge. Discussed drinking 2 liters of water a day and avoiding all ETOH. Chronic hyponatremia at baseline 126<127<128. Discussed with him that large intake of beer is known to cause hyponatremia and he needs to eat well to correct sodium. He has cut back significantly, previously 12-24 beers a day, more recently 6 beers a day. Interested in ETOH cessation and started naltrexone. Baseline Alk phos 54/ALT 76/AST 163. Discussed AA meetings. Recommended BMP, CK in 1 week. Should follow LFT's in 1 month on naltrexone. 25mg x3 days then planning to increase to 50mg if tolerating/no nausea. 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 Started MVI, Bcomplex, Thiamine. Hasn't been taking amlodipine recently, can defer restarting to outpatient. Follow up with PCP in 1-2 weeks Status at Discharge Cognitive/behavioral status at discharge: A&Ox4 Time Spent with Patient Time attestation: Total time spent providing and/or coordinating discharge services:49 minutes Exam Narrative: General - Awake and alert. No acute distress Eyes - PERRLA, EOM intact ENT - No thrush, No erythema Neck - No noticeable or palpable swelling Lymph Nodes - No lymphadenopathy Cardiovascular - RRR no m/r/g, no JVD Lungs: Clear to auscultation, No crackles or wheezing, no use of accessory muscles Skin - Skin warm and dry, no wounds or rashes Abdomen - Normal bowel sounds, abdomen soft and nontender Extremities - No edema, cyanosis or clubbing Musculoskeletal - 5/5 strength, normal range of motion, no swollen or erythematous joints. Neurological ? Alert and oriented x 3, CN 2-12 grossly intact. Psych: Normal mood and affect DS: Data Data Completed and Pending Labs on day of discharge: Labs from last 24 hours 04/18/25 04/17/25 06:09 21:29 WBC 7.1 RBC 4.17 L Hgb 13.5 L Hct 39.9 L MCV 95.7 MCH 32.4 MCHC 33.8 RDW 13.5 Plt Count 253 MPV 8.3 Sodium 128 L Potassium 4.0 Chloride 104 Carbon Dioxide 26 Anion Gap -2 L BUN 5 L Creatinine 0.65 L Estim Creat Clear Calc 95 Estimated GFR > 60 Glucose 82 Calcium 7.6 L Total Bilirubin Pending Direct Bilirubin Pending AST Pending ALT Pending Alkaline Phosphatase Pending Total Creatine Kinase 2154 H Total Protein Pending Albumin Pending Urine Osmolality Pending Ur Random Sodium 149 Discharge Plan Discharge Attending physician on discharge: Rachael Rendon Consulting providers: Rachael Rendon Discharging Clinician: Rachael Rendon Anticipated Discharge Date/Time: 04/18/25 13:54 Patient Disposition: Home Activity: may shower Diet: regular Wound Care Instructions: follow printed instructions Discharge Instructions: Recommend drinking 2 liters of water a day for 5 days. Healthy diet, can eat salty foods. Follow up with your PCP in 1-2 weeks. BMP & CK in a week Recommend avoiding all alcohol. Starting Naltrexone 25mg daily for 3 days and then increase to 50mg daily if you are not having nausea. Recommend trying AA meetings. [facility]: [email or web address] [place]: [email or web address] There are multiple in person and online meeting options Patient Instructions: Antibiotic Form, How to Stop Smoking (DC) Patient Language: Croatian Stand Alone Forms: General Discharge Information Follow-up/Referrals: Justin Olmedo MD [Primary Care Provider, [facility]] - 2 Weeks Discharge Medications: New thiamine HCl (vitamin B1) [Vitamin B-1] 100 mg Tablet 100 mg PO QAM 90 Days Qty: 90 0RF naltrexone 50 mg tablet 50 mg PO DAILY Qty: 30 3RF Rx Instructions: Take 25mg daily (half tab) for 3 days, then increase to 50mg daily (1 whole tablet) if no nausea B-complex with vitamin C Capsule 1 cap PO DAILY Qty: 90 0RF multivit comb no.61-folic acid 1,000 mcg tablet 1 tablet PO DAILY Qty: 90 0RF Continued acetaminophen 500 mg capsule 1,000 mg PO Q6H PRN (Reason: pain) Qty: 30 0RF amlodipine 5 mg tablet 5 mg PO DAILY 30 Days Qty: 30 0RF Other Ambulatory Orders: Basic Metabolic Panel (Routine) Timeframe: 1 Week Location: Determined by Patient Ordered By: Rachael Rendon Creatine Kinase (Routine) Timeframe: 1 Week Location: Determined by Patient Ordered By: Rachael Rendon Date of admission: 04/18/25 13:47 Primary Care Provider: Justin Olmedo Admitting Provider: To Walters Attending physician on admission: To Walters Condition: Stable Quality VTE Prophylaxis VTE prophylaxis: mechanical ordered (Ambulating frequently) Hospitalist MIPS Heart Failure (Exclusion) Patient has history of Heart Transplant or Left Ventricular Assistive Device?: No IF YES, STOP HERE Heart Failure (Qualifier) Patient has current or prior documentation of LVEF less than or equal to 40%, or mod/servere depressed LVSF?: No IF NO, STOP HERE
[2025-04-20 11:09] LABS: Osmolality, Urine 372 mOsmol/kg (.)
[2025-04-20 16:08] LABS: Osmolality, Serum 263 mOsmol/kg (275-295)
== END 2025-04-18 14:57 | disposition home or self-care (01) ==
LOC: ANHED 04-17 01:06 → ANH3MEDSUR 04-17 01:54
PROVIDERS: Nurse Practitioner; Nurse Practitioner Acute Care; Admitting Provider Internal Medicine; Emergency Provider Student in an Organized Health Care Education/Training Program; PCP Emergency Medicine; Visit Provider Internal Medicine
DX: M62.82 Rhabdomyolysis (principal); M79.89 Other specified soft tissue disorders; E87.1 Hypo-osmolality and hyponatremia; F10.20 Alcohol dependence, uncomplicated; I10 Essential (primary) hypertension; E03.9 Hypothyroidism, unspecified; J45.909 Unspecified asthma, uncomplicated; Z87.891 Personal history of nicotine dependence
CPT/HCPCS: 36415; 80048; 80076; 80307; 82550; 83735; 83880; 83930; 83935; 84300; 85025; 85027; 85652; 86140; 93970; 94640; 96360; 96361; 99285; A9270; G0378; J7030